=== PATIENT | female | born 1960 | race Caucasian/White ===

== ENCOUNTER 2019-06-16 19:16 | Inpatient (IN) ==
[2019-06-16] MEDS ORDERED: SODIUM CHLORIDE 0.9% 1000ML 2,000 ML IV ONE (19:43)
[2019-06-16] MEDS ORDERED: MoRPHine SULFATE 10 MG/ML CARP/VIAL IV STA (19:43)
[2019-06-16] MEDS ORDERED: ONDANSETRON INJ 2 MG/ML 2 ML VIAL IV STA (19:44)
[2019-06-16] MEDS ORDERED: MoRPHine SULFATE 2 MG/ML CARP ONE (20:02)
[2019-06-16] MEDS ORDERED: MoRPHine SULFATE 4 MG/ML 1 ML CARP\\VIAL ONE (20:02)
[2019-06-16 20:05] LABS: Basophils # (auto) 0.03 K/uL (0-0.2); Basophils % (auto) 0.2 %; Eosinophils # (auto) 0.06 K/uL (0-0.5); Eosinophils % (auto) 0.4 %; Hematocrit (blood only) 46.9 % (37-47); Immature Granulocytes # (auto) 0.03 K/uL (0.00-0.02); Immature Granulocytes % (auto) 0.2 %; Lymphocytes % (auto) 17.1 %; Mean Corpuscular Hemoglobin 31.7 pg (25-34); Mean Corpuscular Hgb Conc 34.1 g/dL (32-36); Mean Corpuscular Volume 92.9 fL (80-100); Mean Platelet Volume 10.5 fL (7.4-10.4); Monocytes # (auto) 0.74 K/uL (0.11-0.59); Monocytes % (auto) 5.1 %; Neutrophils # (auto) 11.26 K/uL (1.4-6.5); Platelet Count 271 K/uL (130-400); RDW Coefficient of Variation 14.2 % (11.5-14.5); RDW Standard Deviation 47.8 fL (36.4-46.3); Red Blood Count 5.05 M/uL (4.2-5.4); White Blood Count 14.62 K/uL (4.8-10.8)
[2019-06-16 20:20] LABS: iSTAT Creatinine 0.7 mg/dl (0.6-1.3); iSTAT Ionized Calcium 1.38 mmol/l (1.12-1.32); iSTAT Potassium 4.3 mEq/L (3.3-5.0)
[2019-06-16 20:20] LABS: Albumin Level 4.2 gm/dl (3.4-5.0); BUN Creatinine Ratio 14.6 (10-20); Calcium 11.3 mg/dl (8.5-10.1); Creatinine Clr Calc Pharmacy 74.8 ml/min; Est GFR (African American) 85.1; Est GFR (Non-African American) 73.4; Potassium 4.2 mmol/L (3.5-5.1)
[2019-06-16] MEDS ORDERED: IOVERSOL 100ml IV PRN (20:20)
[2019-06-16 20:23] LABS: Albumin Globulin Ratio 1.1 (0.9-2); Bilirubin,Total 0.3 mg/dl (0.2-1); Globulin 3.7 gm/dl (2.5-4.0); Total Protein 7.9 gm/dl (6.4-8.2)
--- NOTE | 2019-06-16 20:41 | CT Scan Report ---
CT abd pelvis IV con only CLINICAL HISTORY: Diffuse abdominal pain. History of multiple prior abdominal surgeries COMPARISON STUDY: None. TECHNIQUE: Patient was scanned in a dynamic helical fashion during intravenous administration of 93 c c of Optiray 320. A dose lowering technique was utilized adhering to the principles of ALARA. CT DOSE: 548.88 mGy.cm FINDINGS: Lower chest: There is subsegmental atelectatic change present within the right lower lobe. Lingular a telectatic changes are also evident. There are no significant pleural effusions. Liver: The contrast-enhanced liver is normal in size, contour, and attenuation. There is no intrahepa tic biliary ductal dilatation. The hepatic veins and portal veins are patent. Gallbladder: Unremarkable. Spleen: Normal in size and attenuation. Pancreas: Unremarkable. Adrenal glands: Unremarkable. Kidneys: There is no hydronephrosis. There are bilateral renal cysts. Bowel: There are dilated mid and proximal small bowel loops.. The distal small bowel is of normal omar iber. The findings are indicative of a small bowel obstruction. There is no pneumatosis. There is no portal venous gas. There is no pathologic interloop fluid. There is colonic diverticulosis. There is no evidence of acute diverticulitis. There is a fluid-filled cecum. There are no findings to indicate acute appendicitis. There are postsurgical changes of a lower sigmoid/rectal anastomosis. Peritoneum: There is no intraperitoneal free air or abdominal ascites. Vasculature: The abdominal aorta is normal in course and caliber. Adenopathy: None. Pelvic viscera: The uterus appears surgically absent Skeletal structures: No destructive osseous lesions are seen. IMPRESSION: 1. Mid small bowel obstruction 2. No evidence of free intraperitoneal air ACT 112: Negative or not required by law. Electronically signed by: Alfred Hodges M.D. 06/16/2019 8:40 PM
[2019-06-16 21:39] LABS: Appearance Urine Clear (Clear); Bilirubin Urine Negative (Negative); Blood Urine Negative (Negative); Color Urine Yellow; Glucose Urine UA Negative (Negative); Ketones Urine Negative (Negative); Leukocyte Esterase Urine Negative (Negative); Nitrite Urine Negative (Negative); Protein Urine Negative (Negative); Specific Gravity Urine 1.045 (1.000-1.030); Urobilinogen Urine Negative (Negative); pH Urine 6.5 (4.5-7.5)
--- NOTE | 2019-06-16 21:43 | Surgery Consultation ---
Date of Consultation June 16, 2019 Assessment & Plan (1) Small bowel obstruction: Patient will be admitted to the hospital with small bowel obstruction. Have ordered an NG tube Does not appear she needs urgent surgical intervention at this time. She does require surgery it may be difficult Secondary to prior operations and potential mesh placement We will be sure her electrolytes, magnesium, phosphate are all normal and replace as needed She and her family appear to understand and agree with the plan History of Present Illness History of Present Illness Patient is a 58-year-old female admitted to the emergency room with abdominal pain and nausea no apparent vomiting CT scan she has evidence of bowel dilatation consistent with a small bowel obstruction. She has a significant surgical history with perforated diverticulitis in 2009 requiring colostomy, at some point she had a reversal parent hernia surgery likely mesh placement. 2 years ago she had a laparoscopy with lysis of adhesions and possible mesh placement at that time. Allergies Allergy/AdvReac Type Severity Reaction Status Date / Time No Known Allergies Allergy Verified 06/16/19 20:13 Home Medications Home Medications Medication Instructions Recorded Confirmed Type multivitamin 1 tab PO DAILY 06/16/19 06/16/19 History Patient History Medical History (Updated 06/16/19 @ 21:44 by Timmy Varela MD, FACS) Rupture of bowel Social History Feels Safe at Home: Yes Smoking Status: Current every day smoker Review of Systems Review of Systems: All systems reviewed & are unremarkable except as noted in HPI & below Physical Exam Physical Exam: Her abdomen is moderately distended she does have some mild bowel sounds He has minimal tenderness and no peritoneal irritation Constitutional: well developed and well nourished; no acute distress Respiratory: normal respiratory effort; no respiratory distress Cardiovascular: Rate/Rhythm: regular rate Skin: no rashes, warm and dry Neurologic: awake Psychiatric: Orientation: alert Results & Data Vital Signs (Past 12 Hours) Vital Signs Temp Pulse Resp BP Pulse Ox 06/16/19 21:00 67 20 103/54 L 95 06/16/19 20:30 70 16 123/71 94 06/16/19 20:28 73 23 119/56 L 94 06/16/19 20:00 67 22 126/67 94 06/16/19 19:53 93 06/16/19 19:43 76 25 H 138/49 L 95 06/16/19 19:28 36.4 C L 91 H 18 113/70 94 I did review her CAT scan PG Care Time/CCT Total # of Minutes Spent Total Time Spent with Patient: Total time spent is greater than 50% in coordinat ion of care (as documented) at patient's floor/unit and/or counseling patient:
[2019-06-16] MEDS ORDERED: ONDANSETRON INJ 2 MG/ML 2 ML VIAL IV PRN (23:02)
[2019-06-16] MEDS ORDERED: MoRPHine SULFATE 4 MG/ML 1 ML CARP\\VIAL IV PRN (23:02)
--- NOTE | 2019-06-16 23:25 | Emergency Department Note ---
Entered by Cristiana Mendoza acting as a scribe for Daryn Greenberg DO History of Present Illness General Chief complaint: Abdominal Pain Stated complaint: ABDOMINAL PAIN Source: patient History of Present Illness Onset (ago): hour(s) (6) Location: abdomen Pain Consistency: + constant Maximum Pain Intensity: 10 Current Pain Intensity: 10 Quality: + sharp Associated symptoms: + denies other symptoms (pain or burning with urination, vaginal bleeding or discharge ) The patient is a 58 year old female who presents to the Emergency Room with complaints of constant sharp abdominal pain beginning 6 hours ago. She reports the pain is a 10/10. She notes the pain extends into her back. The patient states she has been unable to vomit, and notes her last bowel movement was early this morning. The patient denies pain or burning with urination. She denies vaginal bleeding or discharge. The patient reports a history of a ruptured bowel. She states this pain is similar to before she had surgery for the rupture. She notes she still has her gallbladder, appendix, and ovaries. She reports a history of a partial hysterectomy. She states she is a smoker. Home Medications Home Medications Medication Instructions Recorded Confirmed Type multivitamin 1 tab PO DAILY 06/16/19 06/16/19 History Allergies Allergy/AdvReac Type Severity Reaction Status Date / Time No Known Allergies Allergy Verified 06/16/19 20:13 Past Med/Surg History Medical History Rupture of bowel Surgical History History of partial hysterectomy Family History Other No pertinent family history Social History Preferred Language: Armenian Prevocational/Rehabilitation Counselor Required: No Beliefs That Will Affect Care: None Current Living Situation: Spouse Feels Safe at Home: Yes Safety Concerns: Feels Safe At This Time Smoking Status: Current every day smoker Tobacco Type: cigarettes ; Cigarettes Per Day: 20 ; Hx Alcohol Use: Yes Alcohol type: beer and other Hx Substance Use: No Review of Systems See HPI for pertinent positives & negatives. and A total of 10 systems reviewed and were otherwise negative Physical Exam Vital Signs Vital Signs - 24 hr 06/16/19 19:28 06/16/19 19:43 06/16/19 19:53 Temperature 36.4 C L Temperature Source Oral Pulse Rate 91 H 76 Pulse Rate from SpO2 Sensor 74 Respiratory Rate 18 25 H Respiratory Effort / Characteristics Non-Labored Respiratory Depth Normal Blood Pressure 113/70 138/49 L Blood Pressure Mean 84 87 Pulse Oximetry 94 95 93 Oxygen Delivery Method Room Air Room Air Sepsis Recent Fever Within 48 Hours No Sepsis Action Taken by Nursing No Action Required 06/16/19 20:00 06/16/19 20:28 06/16/19 20:30 Temperature Temperature Source Pulse Rate 67 73 70 Pulse Rate from SpO2 Sensor 67 74 70 Respiratory Rate 22 23 16 Respiratory Effort / Characteristics Respiratory Depth Blood Pressure 126/67 119/56 L 123/71 Blood Pressure Mean 80 81 79 Pulse Oximetry 94 94 94 Oxygen Delivery Method Room Air Room Air Sepsis Recent Fever Within 48 Hours Sepsis Action Taken by Nursing 06/16/19 21:00 06/16/19 21:30 06/16/19 22:00 Temperature Temperature Source Pulse Rate 67 69 78 Pulse Rate from SpO2 Sensor 68 69 80 Respiratory Rate 20 15 20 Respiratory Effort / Characteristics Respiratory Depth Blood Pressure 103/54 L 113/68 130/91 Blood Pressure Mean 68 77 115 Pulse Oximetry 95 94 94 Oxygen Delivery Method Room Air Room Air Room Air Sepsis Recent Fever Within 48 Hours Sepsis Action Taken by Nursing GENERAL: sitting up in bed, holding abdomen, moderate distress, non-toxic EYE EXAM: normal conjunctiva OROPHARYNX: no exudate, no erythema, lips, buccal mucosa, and tongue normal and mucous membranes are moist NECK: supple, no nuchal rigidity, no adenopathy, non-tender LUNGS: Clear to auscultation. Normal chest wall mechanics HEART: no murmurs, S1 normal and S2 normal ABDOMEN: abdomen soft, normo-active bowel sounds, no masses, no rebound or guarding. Diffuse tenderness to palpation. Old midline incision in lower abdomen. BACK: Back is symmetrical on inspection and there is no deformity, no midline tenderness, no CVA tenderness. SKIN: no rashes and no bruising UPPER EXTREMITIES: upper extremities are grossly normal. LOWER EXTREMITIES: No pitting edema. NEURO EXAM: Normal sensorium, cranial nerves II-XII grossly intact, normal speech, no gross weakness of arms, no gross weakness of legs. Course Course ED COURSE: Vital signs were reviewed and showed to be normal. The patients medical record was reviewed The above diagnostic studies were performed and reviewed. ED treatments and interventions as stated above. 1934: The patient was evaluated in room B10. A complete history and physical examination was performed. 2109: I spoke with Dr. Varela - General Surgery who agrees to consult on the patient. 2114: Upon reevaluation, the patient is resting more comfortably. I discussed my findings with the patient and she understands and agrees with the treatment plan. Based on the patients age, coexisting illnesses, exam and lab findings the decision to treat as an inpatient was made. I reviewed the patient's case with [facility]. [facility] Hospitalist who will evaluate the patient for further management. The patient remained stable while under my care. The patient will be evaluated for further management. Administered Medications Discontinued Medications Sodium Chloride (Nss 1000ml) 2,000 mls @ 999 mls/hr IV .Q2H1M ONE Stop: 06/16/19 21:43 Last Infusion: 06/16/19 21:58 Dose: 0 mls/hr Documented by: [id number] Admin: 06/16/19 19:57 Dose: 999 mls/hr Documented by: [id number] Ioversol (Optiray 320 100ml) 94 ml IV ONCE PRN PRN Reason: Interaction Checking Stop: 06/20/19 20:19 Last Admin: 06/16/19 20:20 Dose: 94 ml Documented by: [id number] Morphine Sulfate (Morphine Sulfate) 6 mg IV NOW STA Stop: 06/16/19 19:44 Last Admin: 06/16/19 20:05 Dose: Not Given Documented by: [id number] Morphine Sulfate (Morphine Sulfate) Confirm Administered Dose 2 mg .ROUTE .STK- MED ONE Stop: 06/16/19 20:03 Last Admin: 06/16/19 20:04 Dose: 2 mg Documented by: [id number] Morphine Sulfate (Morphine Sulfate) Confirm Administered Dose 4 mg .ROUTE .STK- MED ONE Stop: 06/16/19 20:03 Last Admin: 06/16/19 20:04 Dose: 4 mg Documented by: [id number] Ondansetron HCl (Zofran) 4 mg IV NOW STA Stop: 06/16/19 19:45 Last Admin: 06/16/19 20:03 Dose: 4 mg Documented by: [id number] Medical Decision Making Differential Diagnosis Differential diagnoses includes but is not limited to gastritis, peptic ulcer disease, GERD, gallbladder disease, pancreatitis, small bowel obstruction, acute coronary syndrome, pericarditis, ischemic bowel, irritable bowel disease, ir ritable bowel syndrome, appendicitis, diverticulitis, malignancy, hernia, urinary tract infection, torsion, /ectopic , perforation, trauma, infectious. Medical Records Attestation: I reviewed the patient's medical records. Home Medications Current Medication List: was personally reviewed by me Laboratory Data Attestation: I reviewed the patient's lab results. Result diagrams: 06/16/19 19:54 06/16/19 19:54 Lab Results 06/16/19 06/16/19 06/16/19 Range/Units 19:54 19:54 20:01 WBC 14.62 H (4.8-10.8) K/uL RBC 5.05 (4.2-5.4) M/uL Hgb 16.0 (12.0-16.0) g/dL POC Hgb 16.0 (12.0-16.0) g/dl Hct 46.9 (37-47) % POC Hct 47 (37-47) % MCV 92.9 (80-100) fL MCH 31.7 (25-34) pg MCHC 34.1 (32-36) g/dL RDW Std Deviation 47.8 H (36.4-46.3) fL RDW Coeff of Trace 14.2 (11.5-14.5) % Plt Count 271 (130-400) K/uL MPV 10.5 H (7.4-10.4) fL Immature Gran % (Auto) 0.2 % Neut % (Auto) 77.0 % Lymph % (Auto) 17.1 % [place] % (Auto) 5.1 % Eos % (Auto) 0.4 % Baso % (Auto) 0.2 % Immature Gran # (Auto) 0.03 H (0.00-0.02) K/uL Neut # (Auto) 11.26 H (1.4-6.5) K/uL Lymph # (Auto) 2.50 (1.2-3.4) K/uL [place] # (Auto) 0.74 H (0.11-0.59) K/uL Eos # (Auto) 0.06 (0-0.5) K/uL Baso # (Auto) 0.03 (0-0.2) K/uL POC Sodium 137 (135-144) mEq/L Sodium 138 (136-145) mmol/L POC Potassium 4.3 (3.3-5.0) mEq/L Potassium 4.2 (3.5-5.1) mmol/L POC Chloride 103 (101-112) mEq/L Chloride 105 (98-107) mmol/L Carbon Dioxide 26 (21-32) mmol/L POC Total CO2 25 (24-31) mEq/l Anion Gap 8.0 (3-11) POC Anion Gap 14.0 L (16-25) mmol/L POC BUN 12 (7-18) mg/dl BUN 13 (7-18) mg/dl Creatinine 0.88 (0.6-1.2) mg/dl POC Creatinine 0.7 (0.6-1.3) mg/dl Est Cr Clr Drug Dosing 74.8 ml/min Est GFR ( Amer) 85.1 Est GFR (Non-Af Amer) 73.4 BUN/Creatinine Ratio 14.6 (10-20) Glucose 114 H (70-99) mg/dl POC Glucose (other) 114 H (70-99) mg/dl Calcium 11.3 H (8.5-10.1) mg/dl POC Ioniz Calcium Eli 1.38 H (1.12-1.32) mmol/l Total Bilirubin 0.3 (0.2-1) mg/dl AST 10 L (15-37) U/L ALT 25 (12-78) U/L Alkaline Phosphatase 77 (45-117) U/L Total Protein 7.9 (6.4-8.2) gm/dl Albumin 4.2 (3.4-5.0) gm/dl Globulin 3.7 (2.5-4.0) gm/dl Albumin/Globulin Ratio 1.1 (0.9-2) Lipase 231 (73-393) U/L Urine Color Urine Appearance (Clear) Urine pH (4.5-7.5) Ur Specific [place] (1.000-1.030) Urine Protein (Negative) Urine Glucose (UA) (Negative) Urine Ketones (Negative) Urine Blood (Negative) Urine Nitrite (Negative) Urine Bilirubin (Negative) Urine Urobilinogen (Negative) Ur Leukocyte Esterase (Negative) POC Ur Test (NEG) 06/16/19 06/16/19 Range/Units 21:12 21:12 WBC (4.8-10.8) K/uL RBC (4.2-5.4) M/uL Hgb (12.0-16.0) g/dL POC Hgb (12.0-16.0) g/dl Hct (37-47) % POC Hct (37-47) % MCV (80-100) fL MCH (25-34) pg MCHC (32-36) g/dL RDW Std Deviation (36.4-46.3) fL RDW Coeff of Trace (11.5-14.5) % Plt Count (130-400) K/uL MPV (7.4-10.4) fL Immature Gran % (Auto) % Neut % (Auto) % Lymph % (Auto) % [place] % (Auto) % Eos % (Auto) % Baso % (Auto) % Immature Gran # (Auto) (0.00-0.02) K/uL Neut # (Auto) (1.4-6.5) K/uL Lymph # (Auto) (1.2-3.4) K/uL [place] # (Auto) (0.11-0.59) K/uL Eos # (Auto) (0-0.5) K/uL Baso # (Auto) (0-0.2) K/uL POC Sodium (135-144) mEq/L Sodium (136-145) mmol/L POC Potassium (3.3-5.0) mEq/L Potassium (3.5-5.1) mmol/L POC Chloride (101-112) mEq/L Chloride (98-107) mmol/L Carbon Dioxide (21-32) mmol/L POC Total CO2 (24-31) mEq/l Anion Gap (3-11) POC Anion Gap (16-25) mmol/L POC BUN (7-18) mg/dl BUN (7-18) mg/dl Creatinine (0.6-1.2) mg/dl POC Creatinine (0.6-1.3) mg/dl Est Cr Clr Drug Dosing ml/min Est GFR ( Amer) Est GFR (Non-Af Amer) BUN/Creatinine Ratio (10-20) Glucose (70-99) mg/dl POC Glucose (other) (70-99) mg/dl Calcium (8.5-10.1) mg/dl POC Ioniz Calcium Eli (1.12-1.32) mmol/l Total Bilirubin (0.2-1) mg/dl AST (15-37) U/L ALT (12-78) U/L Alkaline Phosphatase (45-117) U/L Total Protein (6.4-8.2) gm/dl Albumin (3.4-5.0) gm/dl Globulin (2.5-4.0) gm/dl Albumin/Globulin Ratio (0.9-2) Lipase (73-393) U/L Urine Color Yellow Urine Appearance Clear (Clear) Urine pH 6.5 (4.5-7.5) Ur Specific [place] 1.045 H (1.000-1.030) Urine Protein Negative (Negative) Urine Glucose (UA) Negative (Negative) Urine Ketones Negative (Negative) Urine Blood Negative (Negative) Urine Nitrite Negative (Negative) Urine Bilirubin Negative (Negative) Urine Urobilinogen Negative (Negative) Ur Leukocyte Esterase Negative (Negative) POC Ur Test NEG (NEG) Imaging Data Radiologist's Impression: Radiology results as stated below per my review and the radiologist's interpretation: CT abd pelvis IV con only CLINICAL HISTORY: Diffuse abdominal pain. History of multiple prior abdominal surgeries COMPARISON STUDY: None. TECHNIQUE: Patient was scanned in a dynamic helical fashion during intravenous administration of 93 cc of Optiray 320. A dose lowering technique was utilized adhering to the principles of ALARA. CT DOSE: 548.88 mGy.cm FINDINGS: Lower chest: There is subsegmental atelectatic change present within the right lower lobe. Lingular atelectatic changes are also evident. There are no significant pleural effusions. Liver: The contrast-enhanced liver is normal in size, contour, and attenuation. There is no intrahepatic biliary ductal dilatation. The hepatic veins and portal veins are patent. Gallbladder: Unremarkable. Spleen: Normal in size and attenuation. Pancreas: Unremarkable. Adrenal glands: Unremarkable. Kidneys: There is no hydronephrosis. There are bilateral renal cysts. Bowel: There are dilated mid and proximal small bowel loops.. The distal small bowel is of normal caliber. The findings are indicative of a small bowel obstruction. There is no pneumatosis. There is no portal venous gas. There is no pathologic interloop fluid. There is colonic diverticulosis. There is no evidence of acute diverticulitis. There is a fluid-filled cecum. There are no findings to indicate acute appendicitis. There are postsurgical changes of a lower sigmoid/rectal anastomosis. Peritoneum: There is no intraperitoneal free air or abdominal ascites. Vasculature: The abdominal aorta is normal in course and caliber. Adenopathy: None. Pelvic viscera: The uterus appears surgically absent Skeletal structures: No destructive osseous lesions are seen. IMPRESSION: 1. Mid small bowel obstruction 2. No evidence of free intraperitoneal air ACT 112: Negative or not required by law. Electronically signed by: Alfred Hodges M.D. 06/16/2019 8:40 PM Blood Pressure Blood Pressure Findings: Normal blood pressure MDM Narrative Patient is a 58-year-old female who presents the ER for severe abdominal pain. She has a history of a previous obstruction. She notes this feels similar. IV was established blood work was obtained showed a leukocytosis of 14,000. No si gnificant anemia. BMP was unremarkable. Calcium slightly elevated at 11. LFTs bilirubin and lipase was unremarkable. UA was negative. negative. CT abdomen pelvis shows small bowel obstruction. Patient had no vomiting. Abdominal lab was pretty benign. She given IV fluids and IV narcotics. Patient rested comfortably in the ER. She discussed with general surgery and the hospitalist. Updated bedside admitted to the hospital for small bowel obstruction. Impression & Plan Small bowel obstruction, Abdominal pain Discharge Plan Visit Data *Final* Discharge Date/Time: 06/16/19 22:54 Chief Complaint: Abdominal Pain Stated Complaint: ABDOMINAL PAIN ED Provider: Daryn Greenberg Discharge Problem: Small bowel obstruction, Abdominal pain Patient Disposition: Admitted As Inpatient Discharge Instructions Interventions: ED Discharge Assessment Last Done: 06/16/19 22:54 Discharge Problem: Abdominal pain Qualifiers: Abdominal location: unspecified location Qualified Code(s): R10.9 - Unspecified abdominal pain The scribe's documentation has been prepared under my direction and personally reviewed by me in its entirety. I confirm that the note above accurately reflects all work, treatment, procedures, and medical decision making performed by me.
[2019-06-16] MEDS: D5W AND NSS 1,000 ML IV SCH (23:32)
--- NOTE | 2019-06-17 01:08 | History and Physical Report ---
DATE OF ADMISSION: 06/16/2019 CHIEF COMPLAINT: Abdominal pain. HISTORY OF PRESENT ILLNESS: A 58-year-old female with past medical history significant for ruptured diverticulitis status post colostomy, reversal colostomy in 2009 and then had a hernia surgery, complication from her previous surgery. Then in 2017,she had laparoscopic lysis of adhesions and possible mesh placement at [facility].Lives with her , comes because of abdominal pain started today afternoon, severe in nature, also has some nausea. Last bowel movement was in the morning when she had small bowel movement. Yesterday she felt chills. Denies any fevers. Currently given pain medications and NG tube and symptoms improved, slight greenish yellowish fluid draining in the NG tube. Has some mild headache, no blurred visions, no earache, no runny nose, no sore throat. Otherwise, her appetite is okay. No difficulty swallowing, no chest pain or shortness of breath. No diarrhea or constipation. Currently resting comfortably and hemodynamically stable. ALLERGIES: No known drug allergies. PAST MEDICAL HISTORY: As mentioned above. PAST SURGICAL HISTORY: Surgery for ruptured diverticulitis with colostomy and reversal colostomy, hernia surgery and also laparoscopic adhesiolysis, hysterectomy. MEDICATIONS: Multivitamins. FAMILY HISTORY: Father had prostate cancer and COPD. Mother had colon cancer. SOCIAL HISTORY: No smoking. Alcohol occasional. Lives with her . REVIEW OF SYMPTOMS: As per HPI. Rest of review of symptoms negative. PHYSICAL EXAMINATION: GENERAL: The patient is of moderate build, not in acute distress. VITAL SIGNS: Temperature 36.4, pulse 67, respiratory rate 20, blood pressure 130/91, oxygen 94% room air. HEENT: No pallor, no icterus. Pupils equal, round, reactive. NECK: No JVD, no neck masses, no carotid bruits. CARDIOVASCULAR: S1, S2 heard, regular rate and rhythm, no murmur, no gallop. RESPIRATORY SYSTEM: Normal AP diameter. No accessory muscle use. No wheezing, no crackles. ABDOMEN: Soft, bowel sounds absent, mild distention, no guarding, no rigidity, no tenderness. CENTRAL NERVOUS SYSTEM: Cranial nerves II-XII grossly intact. Nonfocal. EXTREMITIES: Trace pedal edema, no erythema. LABORATORY DATA: WBC 14.6, hemoglobin 16, hematocrit 46.9, platelets 271. Sodium 138, potassium 4.2, chloride 105, CO2 26, BUN 13, creatinine 0.8, serum glucose 114, calcium 11.3, total bilirubin 0.3, AST 10, ALT 25, alkaline phosphatase 77, lipase 231. UA negative. CT of abdomen and pelvis shows mild small-bowel obstruction, no evidence of free or peritoneal air. ASSESSMENT AND PLAN: This is a 58-year-old female who presents with abdominal pain, found to have small-bowel obstruction. 1. Abdominal pain, small-bowel obstruction, history of prior abdominal surgeries as mentioned in H&P. Surgery consulted and evaluated in the ER. Currently, patient is on NG tube, will continue NG tube, IV fluids, IV antiemetics p.r.n., IV pain medication p.r.n. and follow KUB in a.m., further recommendation as per Surgery. 2. Hypercalcemia: Could be from dehydration. We will follow repeat labs in a.m. and will check vitamin D levels. The patient is on multivitamins. 3. Deep venous thrombosis prophylaxis, sequential compression devices. DISPOSITION: Admit to medical floor. Expect discharge home and follow with family doctor. Level 1 full code. MTDD
[2019-06-17 05:45] LABS: Basophils # (auto) 0.03 K/uL (0-0.2); Basophils % (auto) 0.3 %; Eosinophils # (auto) 0.12 K/uL (0-0.5); Eosinophils % (auto) 1.3 %; Hematocrit (blood only) 42.1 % (37-47); Hemoglobin 13.9 g/dL (12.0-16.0); Immature Granulocytes # (auto) 0.02 K/uL (0.00-0.02); Immature Granulocytes % (auto) 0.2 %; Lymphocytes % (auto) 31.2 %; Mean Corpuscular Hemoglobin 31.2 pg (25-34); Mean Corpuscular Volume 94.4 fL (80-100); Mean Platelet Volume 10.2 fL (7.4-10.4); Monocytes # (auto) 0.84 K/uL (0.11-0.59); Neutrophils # (auto) 5.38 K/uL (1.4-6.5); Platelet Count 225 K/uL (130-400); RDW Coefficient of Variation 14.2 % (11.5-14.5); Red Blood Count 4.46 M/uL (4.2-5.4); White Blood Count 9.29 K/uL (4.8-10.8)
[2019-06-17 06:06] LABS: Albumin Globulin Ratio 1.1 (0.9-2); Albumin Level 3.2 gm/dl (3.4-5.0); BUN Creatinine Ratio 11.7 (10-20); Bilirubin,Total 0.3 mg/dl (0.2-1); Calcium 9.3 mg/dl (8.5-10.1); Creatinine Clr Calc Pharmacy 90.1 ml/min; Est GFR (African American) 106.7; Est GFR (Non-African American) 92.1; Magnesium 1.9 mg/dl (1.8-2.4); Phosphorus 2.9 mg/dl (2.5-4.9); Potassium 3.9 mmol/L (3.5-5.1); Total Protein 6.2 gm/dl (6.4-8.2)
[2019-06-17] MEDS: D5W AND NSS 1,000 ML IV SCH ×2 (06:14→13:09)
--- NOTE | 2019-06-17 06:29 | Surgery Progress Note ---
Date of Service June 17, 2019 Assessment & Plan (1) Small bowel obstruction: Patient has shown some improvement overnight Her NG output is clear We should continue with NG decompression, check her electrolytes occluding phos/mg I think she can have ice chips popsicles-we will monitor the amount Should ambulate in the hallway We may consider contrast study via the G-tube/CT scan tomorrow depending on her progress Subjective Patient is awake and alert her vital signs are stable She feels much better after placement of the NG tube with minimal pain [place] she did have over 500 cc out from her NG tube Her urine output is adequate Physical Exam Physical Exam: Patients abdomen is much less distended and softer She does have some bowel sounds they are slightly high-pitched She has no significant tenderness Constitutional: no acute distress Respiratory: normal respiratory effort; no respiratory distress Cardiovascular: Rate/Rhythm: regular rate Skin: no rashes, warm and dry Neurologic: awake Psychiatric: Orientation: alert Results & Data Vital Signs (Past 12 Hours) Vital Signs Temp Pulse Pulse Resp BP BP Pulse Ox 06/16/19 23:02 36.5 C 69 18 117/72 94 06/16/19 22:30 72 15 129/62 94 06/16/19 22:00 78 20 130/91 94 06/16/19 21:30 69 15 113/68 94 06/16/19 21:00 67 20 103/54 L 95 06/16/19 20:30 70 16 123/71 94 06/16/19 20:28 73 23 119/56 L 94 06/16/19 20:00 67 22 126/67 94 06/16/19 19:53 93 06/16/19 19:43 76 25 H 138/49 L 95 06/16/19 19:28 36.4 C L 91 H 18 113/70 94 PG Care Time/CCT Total # of Minutes Spent Total Time Spent with Patient: Total time spent is greater than 50% in coordination of care (as documented) at patient's floor/unit and/or counseling patient:
--- NOTE | 2019-06-17 08:08 | XRay Report ---
KUB CLINICAL HISTORY: Small bowel obstruction. FINDINGS: 2 AP supine abdominal radiographs are correlated with abdominal CT dated 06/16/2019. An ente uri tube projects below the diaphragm over the proximal stomach. There are mildly distended and gas-f illed small bowel loops which measure up to 3.5 cm in diameter. This is consistent with the known his tory of small bowel obstruction. No evidence of intraperitoneal free air is seen on these supine imag es. There are no abnormal abdominal calcifications. Suture material and phleboliths are noted in the pelvis. The skeletal structures are osteopenic. Mild lumbosacral spondylosis is observed. Atelectasis is noted at the lung bases. IMPRESSION: 1. An enteric tube projects below the diaphragm over the proximal stomach. 2. Mildly distended and gas-filled loops of small bowel remain consistent with obstruction. Electronically signed by: Thuan Carrero M.D. 06/17/2019 8:07 AM
--- NOTE | 2019-06-17 13:22 | Hospitalist Progress Note ---
Date of Service June 17, 2019 Assessment & Plan (1) Small bowel obstruction: -CT abdomen: 06/16/2019: Mid small bowel obstruction -KUB 06/17/2019: Mildly distended and gas-filled loops of small bowel remain consistent with obstruction -06/17/2019: Patient reported 1 episode of wet flatus yesterday but otherwise she reports her last bowel movement was on Monday06/14/2019. Patient remains having NG tube as per general surgery service -monitor electrolytes while on NG tube -give IV fluids with dextrose Abdominal pain secondary to small bowel obstruction -pain appears controlled as of -continue prn pain pain medications and prn anti-emetics Hypercalcemia Vitamin D deficiency -serum calcium levels downtrended with IV fluids -trend calcium levels -the 25-OH vitamin D levels are low as 16.3 ng/ml (reference range of 30 to 100) -check PTH levels Deep venous thrombosis prophylaxis, sequential compression devices; ambulation is encouraged Ambulation as tolerated Subjective Patient reported 1 episode of wet flatus yesterday but otherwise she reports her last bowel movement was on Monday06/14/2019. Patient remains having NG tube. no vomiting. no chest pain. no shortness of breath. no abdominal pain. she is encouraged to ambulate when NG tube is not suctioning Review of Systems Review of Systems: All systems reviewed & are unremarkable except as noted in HPI & below Physical Exam Eyes: PERRL, conjunctivae normal, anicteric sclerae EOM intact bilaterally ENMT: external ear and nose normal, oropharynx normal Respiratory: normal respiratory effort, lungs clear to auscultation Cardiovascular: RRR, no murmur, no edema Gastrointestinal (Abdomen): normal bowel sounds, soft, nontender, no hepatosplenomegaly Musculoskeletal: Head/Neck/Chest: normocephalic and head atraumatic Neurologic: PERRL, EOMI, accommodation nl, no face palsy, no dysarthria CN's II-XI intact bilaterally Psychiatric: A+Ox3, euthymic affect Results & Data Vital Signs (Past 12 Hours) Vital Signs Temp Pulse Resp BP Pulse Ox 06/17/19 07:33 36.5 C 68 16 101/62 90
[2019-06-17] MEDS ORDERED: HYDROmorphone INJ 0.5 MG/0.5 ML SYR IV PRN (13:27)
[2019-06-17] MEDS ORDERED: ACETAMINOPHEN 1,000 MG/100 ML VIAL IV PRN (13:27)
[2019-06-17] MEDS ORDERED: KETOROLAC TROMETHAMINE 15 MG/ML VIAL IV PRN (13:27)
[2019-06-17 14:19] LABS: Albumin Level 3.6 gm/dl (3.4-5.0); BUN Creatinine Ratio 10.4 (10-20); Calcium 9.4 mg/dl (8.5-10.1); Creatinine Clr Calc Pharmacy 84.3 ml/min; Est GFR (African American) 98.5; Potassium 4.1 mmol/L (3.5-5.1)
[2019-06-17 14:29] LABS: Albumin Globulin Ratio 1.1 (0.9-2); Bilirubin,Total 0.4 mg/dl (0.2-1); Globulin 3.2 gm/dl (2.5-4.0); Thyroid Stimulating Hormone 46.8 uIu/ml (0.300-4.500); Total Protein 6.8 gm/dl (6.4-8.2)
[2019-06-17 14:42] LABS: T4 Free Thyroxine 0.47 ng/dl (0.8-1.6)
[2019-06-17] MEDS: D5W AND 1/2NSS 1,000 ML IV SCH (14:43)
[2019-06-18] MEDS: D5W AND 1/2NSS 1,000 ML IV SCH ×2 (05:54→22:56)
--- NOTE | 2019-06-18 07:17 | Surgery Progress Note ---
Date of Service June 18, 2019 Assessment & Plan (1) Small bowel obstruction: cont NG will check CT with contrast via NG assess transit of contrast cont ambulation, check labs Subjective passed some flatus NG 170 last shift- nonbilious good UO Physical Exam Physical Exam: abd- mild distention, some normal bowel sounds nontender Constitutional: well developed and well nourished; no acute distress Respiratory: normal respiratory effort; no respiratory distress Cardiovascular: Rate/Rhythm: regular rate Skin: no rashes, warm and dry Neurologic: awake Psychiatric: Orientation: alert Results & Data Vital Signs (Past 12 Hours) Vital Signs Temp Pulse Resp BP Pulse Ox 06/18/19 07:01 37.1 C 77 16 118/68 92 06/17/19 23:19 37.3 C 98 H 16 128/81 93 PG Care Time/CCT Total # of Minutes Spent Total Time Spent with Patient: Total time spent is greater than 50% in coordination of care (as documented) at patient's floor/unit and/or counseling patient:
[2019-06-18] MEDS ORDERED: LEVOTHYROXINE SODIUM 50 MCG in SYRINGE 0 ML IV ONE (07:30)
[2019-06-18 07:36] LABS: Basophils # (auto) 0.02 K/uL (0-0.2); Basophils % (auto) 0.2 %; Eosinophils # (auto) 0.14 K/uL (0-0.5); Eosinophils % (auto) 1.3 %; Hematocrit (blood only) 45.2 % (37-47); Hemoglobin 14.9 g/dL (12.0-16.0); Immature Granulocytes # (auto) 0.02 K/uL (0.00-0.02); Immature Granulocytes % (auto) 0.2 %; Lymphocytes % (auto) 21.3 %; Mean Corpuscular Hemoglobin 31.2 pg (25-34); Mean Corpuscular Volume 94.6 fL (80-100); Mean Platelet Volume 10.3 fL (7.4-10.4); Monocytes # (auto) 1.13 K/uL (0.11-0.59); Monocytes % (auto) 10.5 %; Neutrophils # (auto) 7.18 K/uL (1.4-6.5); Neutrophils % (auto) 66.5 %; Platelet Count 220 K/uL (130-400); RDW Coefficient of Variation 14.2 % (11.5-14.5); RDW Standard Deviation 49.1 fL (36.4-46.3); Red Blood Count 4.78 M/uL (4.2-5.4); White Blood Count 10.79 K/uL (4.8-10.8)
[2019-06-18 08:06] LABS: Albumin Level 3.6 gm/dl (3.4-5.0); BUN Creatinine Ratio 7.7 (10-20); Calcium 9.7 mg/dl (8.5-10.1); Creatinine Clr Calc Pharmacy 84.3 ml/min; Est GFR (African American) 98.5; Magnesium 2.1 mg/dl (1.8-2.4)
[2019-06-18 08:09] LABS: Albumin Globulin Ratio 1.1 (0.9-2); Bilirubin,Total 0.5 mg/dl (0.2-1); Globulin 3.3 gm/dl (2.5-4.0); Phosphorus 2.6 mg/dl (2.5-4.9); Total Protein 6.9 gm/dl (6.4-8.2)
--- NOTE | 2019-06-18 08:25 | Hospitalist Progress Note ---
Date of Service June 18, 2019 Assessment & Plan (1) Small bowel obstruction: risk factors for small bowel obstruction includes previous abdominal surgeries years ago, untreated hyperparathyroidism with hypercalcemia, and newly diagnosed hypothyroidism -CT abdomen: 06/16/2019: Mid small bowel obstruction -KUB 06/17/2019: Mildly distended and gas-filled loops of small bowel remain consistent with obstruction -06/17/2019: Patient reported 1 episode of wet flatus yesterday but otherwise she reports her last bowel movement was on Monday06/14/2019. Patient remains having NG tube as per general surgery service -monitor electrolytes while on NG tube 06/18/2019: patient reports she is passing flatus, no bowel movements yet -continue with IV fluids with dextrose, continue NG tube Abdominal pain secondary to small bowel obstruction -pain appears controlled as of 06/17/2019, and no pain on 06/18/2019 -continue prn pain pain medications and prn anti-emetics HYPERPARATHYROIDISM as cause of HYPERCALCEMIA HYPOTHYROIDISM Vitamin D deficiency Hypothyroidism -patient reports of parathyroid imaging years ago -elevated serum calcium of 11.3 on admission -serum calcium levels downtrended with IV fluids to around 9 -the 25-OH vitamin D levels are low as 16.3 ng/ml (reference range of 30 to 100) -elevated PTH of 82 -elevated TSH of 46 with low T4. labs currently suggest HYPOTHYROIDISM. gave Levothyroxine 50 mcg IV starting AM of 06/18/2019 and ordered thyroid ultrasound -Hospitalist discussed case with [facility] dentist attendant Dr. Rodriguez on 06/18/2019 who notes that in 2010 patient had assessment for hyperparathyroidism in 2010 when PTH was 90 and calcium of 11 and there were nodules in right thyroid nodes and then lost to follow up -Dr. Rodriguez suggest parathyroid hormone-related protein testing to rule out malignancy related causes of elevated parathyroid although she thinks that malignancy is unlikely, given that patient known in the distant past to have elevated PTH and calcium levels. parathyroid hormone-related protein to be drawn on 06/18/2019 in hospital and this is a reference lab send out -Dr. Rodriguez suggests correcting vitamin D levels with 50,000 units twice a week for 8 weeks to rule out vitamin D deficiency as cause of elevated PTH. since patient currently has NG tube, hospitalist tentatively ordered vitamin D once every Monday and every Monday for now -in regards to the hypothyroidism, Dr. Rodriguez requests checking cortisol level to rule out adrenal issues, and that if AM cortisol levels are in double digit ranges then IV Levothyroxine should be given as 100 mcg IV daily and that when patient ready for oral Levothyroxine she should be on 125 mcg PO daily Deep venous thrombosis prophylaxis, sequential compression devices; ambulation is encouraged Ambulation as tolerated Subjective Patient seen and examined. currently remains on NG tube. Patient reports passing gas but no bowel movements. no vomiting. no abdominal pain. no neck pain. no headache. We discussed endocrine history and tentative hospital plans Review of Systems Review of Systems: All systems reviewed & are unremarkable except as noted in HPI & below Physical Exam Eyes: PERRL, conjunctivae normal, anicteric sclerae EOM intact bilaterally ENMT: external ear and nose normal, oropharynx normal Neck: normal visual inspection and trachea midline Respiratory: normal respiratory effort, lungs clear to auscultation Cardiovascular: RRR, no murmur, no edema Gastrointestinal (Abdomen): normal bowel sounds, soft, nontender, no hepatosplenomegaly Musculoskeletal: Head/Neck/Chest: normocephalic and head atraumatic Neurologic: PERRL, EOMI, accommodation nl, no face palsy, no dysarthria CN's II-XI intact bilaterally Psychiatric: A+Ox3, euthymic affect Results & Data Vital Signs (Past 12 Hours) Vital Signs Temp Pulse Resp BP Pulse Ox 06/18/19 07:31 36.6 C 88 18 129/71 94 06/18/19 07:01 37.1 C 77 16 118/68 92 06/17/19 23:19 37.3 C 98 H 16 128/81 93
[2019-06-18] MEDS: ERGOCALCIFEROL 50,000 UNITS CAP PO SCH (09:15)
[2019-06-18] MEDS ORDERED: IOVERSOL 100ml IV PRN (09:24)
--- NOTE | 2019-06-18 09:44 | CT Scan Report ---
CT abd pelvis oral and IV con CLINICAL HISTORY: Small bowel obstruction. COMPARISON STUDY: June 16, 2019 TECHNIQUE: The patient was scanned following administration of dilute oral contrast, and in a dynamic helical fashion during intravenous administration of 94 cc of Optiray 320. A dose lowering techniqu e was utilized adhering to the principles of ALARA. CT DOSE: 644.02 mGy.cm FINDINGS: Lower chest: There is an indwelling nasogastric tube. There is pulmonary emphysema. There are lower l obe airspace opacities, likely atelectatic. Liver: The contrast-enhanced liver is normal in size, contour, and attenuation. There is no intrahepa tic biliary ductal dilatation. The hepatic veins and portal veins are patent. Gallbladder: Slight increased density, likely secondary to vicarious excretion. Spleen: Normal in size and attenuation. Pancreas: Unremarkable. Adrenal glands: Unremarkable. Kidneys: There are bilateral renal cysts. No solid renal masses are visualized. Bowel: There are dilated proximal small bowel loops with normal caliber distal small bowel. The findi ngs are consistent with a partial small bowel obstruction. Contrast reached the level of the transver se colon, 2 hours following initiation of congestion. Peritoneum: There is a small amount of free pelvic fluid. This was not present on the preceding study . There is no free intraperitoneal air. Vasculature: The abdominal aorta is normal in course and caliber. Adenopathy: None. Pelvic viscera: The uterus appears surgically absent Skeletal structures: No destructive osseous lesions are seen. IMPRESSION: 1. Proximal to mid partial small bowel obstruction. Oral contrast reached the mid transverse colon 2 hours following initiation of ingestion 2. Interval development of a small amount of free pelvic fluid. ACT 112: Negative or not required by law. Electronically signed by: Alfred Hodges M.D. 06/18/2019 9:43 AM
--- NOTE | 2019-06-18 10:04 | Ultrasound Report ---
US thyroid CLINICAL HISTORY: hyperparathyroidism, hypothyroid COMPARISON STUDY: None FINDINGS: The right lobe the thyroid measures 30 x 15 x 18 mm. The left lobe measures 21 x 8 x 12 mm. Both lobes are abnormal in echotexture with coalescent nodules. IMPRESSION: 1. Multinodular thyroid gland demonstrating coarsened echotexture. Individual nodules are difficult t o measure as the nodules are coalescent. ACT 112: Negative or not required by law. Electronically signed by: Alfred Hodges M.D. 06/18/2019 10:03 AM
--- NOTE | 2019-06-18 11:32 | Surgery Progress Note ---
Date of Service June 18, 2019 Assessment & Plan (1) Small bowel obstruction: CT- contrast quickly to transverse colon- has dilated mid sm bowel which I suspect is chronic from adhesions. will d/c NG and ice/popsocles only today if she recurs - will likely need operation, possible resection will be difficult with prior surgery and mesh Results & Data Vital Signs (Past 12 Hours) Vital Signs Temp Pulse Resp BP Pulse Ox 06/18/19 07:31 36.6 C 88 18 129/71 94 06/18/19 07:01 37.1 C 77 16 118/68 92 PG Care Time/CCT Total # of Minutes Spent Total Time Spent with Patient: Total time spent is greater than 50% in coordination of care (as documented) at patient's floor/unit and/or counseling patient:
[2019-06-19] MEDS ORDERED: SENNA 8.8 MG/5 ML UDP PO PRN (05:53)
[2019-06-19 06:06] LABS: Basophils # (auto) 0.02 K/uL (0-0.2); Basophils % (auto) 0.4 %; Eosinophils # (auto) 0.15 K/uL (0-0.5); Eosinophils % (auto) 2.8 %; Hematocrit (blood only) 40.6 % (37-47); Hemoglobin 13.3 g/dL (12.0-16.0); Immature Granulocytes # (auto) 0.01 K/uL (0.00-0.02); Immature Granulocytes % (auto) 0.2 %; Lymphocytes % (auto) 31.3 %; Mean Corpuscular Hemoglobin 30.9 pg (25-34); Mean Corpuscular Hgb Conc 32.8 g/dL (32-36); Mean Corpuscular Volume 94.2 fL (80-100); Mean Platelet Volume 10.7 fL (7.4-10.4); Monocytes # (auto) 0.67 K/uL (0.11-0.59); Monocytes % (auto) 12.3 %; Neutrophils # (auto) 2.89 K/uL (1.4-6.5); Platelet Count 189 K/uL (130-400); RDW Coefficient of Variation 13.9 % (11.5-14.5); RDW Standard Deviation 48.7 fL (36.4-46.3); Red Blood Count 4.31 M/uL (4.2-5.4); White Blood Count 5.44 K/uL (4.8-10.8)
[2019-06-19 06:34] LABS: Albumin Level 3.3 gm/dl (3.4-5.0); BUN Creatinine Ratio 8.6 (10-20); Calcium 9.5 mg/dl (8.5-10.1); Creatinine Clr Calc Pharmacy 96.7 ml/min; Est GFR (African American) 113.3; Est GFR (Non-African American) 97.8; Magnesium 2.1 mg/dl (1.8-2.4); Phosphorus 2.8 mg/dl (2.5-4.9); Potassium 3.5 mmol/L (3.5-5.1)
[2019-06-19 06:36] LABS: Albumin Globulin Ratio 1.1 (0.9-2); Bilirubin,Total 0.5 mg/dl (0.2-1); Globulin 3.1 gm/dl (2.5-4.0); Total Protein 6.4 gm/dl (6.4-8.2)
--- NOTE | 2019-06-19 06:41 | Surgery Progress Note ---
Date of Service June 19, 2019 Assessment & Plan (1) Small bowel obstruction: will try clear liquids, add Senna syrup pt likely with chronic adhesions and chronic partial obstruction/stricture assess progress, hopefully can avoid operation Subjective awake, alert ++ bm- feels ok Physical Exam Physical Exam: abd soft, normal bs Constitutional: well developed; no acute distress Respiratory: normal respiratory effort; no respiratory distress Cardiovascular: Rate/Rhythm: regular rate Skin: no rashes, warm and dry Neurologic: awake Psychiatric: Orientation: alert Results & Data Vital Signs (Past 12 Hours) Vital Signs Temp Pulse Resp BP Pulse Ox 06/18/19 23:17 36.8 C 67 15 114/66 91 PG Care Time/CCT Total # of Minutes Spent Total Time Spent with Patient: Total time spent is greater than 50% in coordination of care (as documented) at patient's floor/unit and/or counseling patient:
--- NOTE | 2019-06-19 08:07 | XRay Report ---
XR abdomen 2V w PA chest CLINICAL HISTORY: 58 years-old Female presenting with h/o sbo, assess transit of CT contrast from 06/05. TECHNIQUE: PA view of the chest and supine and upright views of the abdomen were obtained. COMPARISON: Plain radiographs of the abdomen from 06/17/[address] of the abdomen and pelvis from 06/05. FINDINGS: Atherosclerosis of the aortic arch. Cardiac silhouette normal in size. Bilateral trace pleural effusi on suspected. Minimal left basilar opacity. No pneumothorax. Mild coarsened lung markings. Residual oral contrast noted in the large bowel. Oral contrast has reached the rectum. Diverticulosis of the left colon. Nonobstructive bowel gas pattern. No gross pneumoperitoneum. Allowing for bowel gas and residual oral contrast, no calcifications to suggest nephrolithiasis. Mult iple pelvic calcifications likely phleboliths. Osseous structures normal. IMPRESSION: 1. Trace bilateral pleural effusions and left basilar atelectasis. 2. Diverticulosis coli. 3. Oral contrast has reached the rectum. 4. Nonobstructive bowel gas pattern. ACT 112: Negative or not required by law. Electronically signed by: David Araya M.D. 06/19/2019 8:05 AM
[2019-06-19] MEDS ORDERED: LEVOTHYROXINE SODIUM 50 MCG in SYRINGE 0 ML IV SCH (09:00)
[2019-06-19] MEDS: LEVOTHYROXINE SODIUM 100 MCG in SYRINGE 0 ML IV SCH (09:40)
--- NOTE | 2019-06-19 14:28 | Hospitalist Progress Note ---
Date of Service June 19, 2019 Assessment & Plan (1) Small bowel obstruction: Improving clinically. Imaging this am revealed a nonobstructive bowel gas pattern. Cont management per General surgery recs. Advancing diet to clears for today with slow progression. Minimize narcotic use. (2) Secondary hyperparathyroidism: 2/2 vitamin D deficiency. Replacing with ergocalciferol now. Repeat 25 OH,PTH, Ca as outpatient in PCP followup. PTHrp also pending to ensure no malignancy which is thought to be less likely. (3) Hypothyroidism: New diagnosis. Was given IV Synthroid while on NGT. Will transition her to PO in am. Will need follow-up with PCP and Endocrinology/ENT regarding thyroid nodule workup and continued monitoring after this treatment initiation. (4) Thyroid nodule: (5) DVT prophylaxis: Lovenox/ambulation Full Code Dispo-to home when medically stable and cleared by surgery. Tabby Pena DO [facility] Hospitalist Subjective 58 yo F with a h/o bowel rupture in 1999 from a ruptured diverticula presented with abdominal pain and found to have an SBO. She is now moving her bowels, which are watery but denies pain. She is tolerating clear liquid diet. Review of Systems Review of Systems: All systems reviewed & are unremarkable except as noted in HPI & below Physical Exam Physical Exam: CONSTITUTIONAL: WNWD, vitals as above, generally well- appearing EYES: normal conjunctivae, no scleral icterus ENT: MMM RESPIRATORY: clear to auscultation bilaterally, no crackles, rales or wheezes, normal respiratory effort CARDIOVASCULAR: regular rate and rhythm, S1 and 2 heard without murmurs, gallops or rubs, no JVD, no peripheral edema GASTROINTESTINAL: normal bowel sounds, soft, nontender, nondistended MUSCULOSKELETAL: strength 5/5 throughout, head is normocephalic and atraumatic SKIN: warm and dry NEUROLOGIC: CN 2-12 grossly intact, no sensory deficit, normal cognition, normal speech, no gross focal deficits. PSYCHIATRIC: alert cooperative and oriented to person, place and time. Results & Data Vital Signs (Past 12 Hours) Vital Signs Temp Pulse Resp BP Pulse Ox 06/19/19 07:46 36.5 C 75 18 106/69 91 Laboratory Results Short CBC 06/19/19 Range/Units 05:21 WBC 5.44 (4.8-10.8) K/uL Hgb 13.3 (12.0-16.0) g/dL Hct 40.6 (37-47) % Plt Count 189 (130-400) K/uL BMP 06/19/19 05:21 Sodium 141 Potassium 3.5 Chloride 111 H Carbon Dioxide 26 BUN 6 L Creatinine 0.68 Glucose 100 H Calcium 9.5 Liver Function 06/19/19 Range/Units 05:21 Total Bilirubin 0.5 (0.2-1) mg/dl AST 12 L (15-37) U/L ALT 14 (12-78) U/L Alkaline Phosphatase 64 (45-117) U/L Albumin 3.3 L (3.4-5.0) gm/dl Medications Administered Current Inpatient Medications Ergocalciferol (Vitamin D2) 50,000 units PO MoFr@0900 [facility] Stop: 07/18/19 09:14 Last Admin: 06/18/19 09:15 Dose: 50,000 units Documented by: Hydromorphone HCl (Dilaudid) 0.5 mg IV Q8H PRN PRN Reason: Severe Pain Stop: 07/01/19 13:26 Dextrose/Sodium Chloride (D5w And 1/2nss) 1,000 mls @ 60 mls/hr IV .[id number] [facility] Stop: 07/17/19 13:29 Last Admin: 06/18/19 22:56 Dose: 60 mls/hr Documented by: Acetaminophen (Ofirmev) 1,000 mg in 100 mls @ 400 mls/hr IV Q8H PRN PRN Reason: Pain or Fever Stop: 06/20/19 13:26 Levothyroxine Sodium 100 mcg/ (Syringe) 5 mls @ 2 mls/min IV DAILY@0900 [facility] Stop: 07/19/19 08:59 Last Admin: 06/19/19 09:40 Dose: 2 mls/min Documented by: Ioversol (Optiray 320 100ml) 94 ml IV ONCE PRN PRN Reason: Interaction Checking Stop: 06/22/19 09:23 Last Admin: 06/18/19 09:24 Dose: 94 ml Documented by: Ketorolac Tromethamine (Toradol) 15 mg IV Q6H PRN PRN Reason: Moderate Pain Stop: 06/22/19 13:26 Ondansetron HCl (Zofran) 4 mg IV Q6H PRN PRN Reason: Nausea Stop: 07/16/19 23:01 Last Admin: 06/17/19 11:35 Dose: 4 mg Documented by: Sennosides (Senokot) 8.8 mg PO BID PRN PRN Reason: Constipation Stop: 07/19/19 05:52 Last Admin: 06/19/19 10:30 Dose: 8.8 mg Documented by:
[2019-06-19] MEDS ORDERED: ACETAMINOPHEN 325 MG TAB PO PRN (15:19)
--- NOTE | 2019-06-20 06:34 | Surgery Progress Note ---
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 most likely will adv to Low fiber- ask [employer] to see for diet at home cont senna syrup possible d/c tomorrow if stable- hopefully can avoid operation which I suspect would be major Subjective kenia full liquids no pain meds taken Physical Exam Physical Exam: some distention- active bowel sounds Constitutional: well developed and well nourished; no acute distress Respiratory: normal respiratory effort; no respiratory distress Cardiovascular: Rate/Rhythm: regular rate Skin: no rashes, warm and dry Neurologic: awake Psychiatric: Orientation: alert Results & Data Vital Signs (Past 12 Hours) Vital Signs Temp Pulse Resp BP Pulse Ox 06/19/19 23:04 36.6 C 65 18 113/72 93 PG Care Time/CCT Total # of Minutes Spent Total Time Spent with Patient: Total time spent is greater than 50% in coordination of care (as documented) at patient's floor/unit and/or counseling patient:
[2019-06-20] MEDS: LEVOTHYROXINE SODIUM 100 MCG in SYRINGE 0 ML IV SCH (09:20)
[2019-06-20] MEDS ORDERED: ENOXAPARIN INJ 40 MG/0.4 ML SYR SQ ONE (11:00)
--- NOTE | 2019-06-20 17:19 | Hospitalist Progress Note ---
Date of Service June 20, 2019 Assessment & Plan (1) Small bowel obstruction: Continues to improve. Continue low fiber diet. Cont surgical recs. Likely dc to home in am. (2) Secondary hyperparathyroidism: 2/2 vitamin D deficiency. Replacing with ergocalciferol now. Repeat 25 OH,PTH, Ca as outpatient in PCP followup. PTHrp also pending to ensure no malignancy which is thought to be less likely. (3) Hypothyroidism: New diagnosis. Was given IV Synthroid while on NGT. Will transition her to PO in am. Will need follow-up with PCP and Endocrinology/ENT regarding thyroid nodule workup and continued monitoring after this treatment initiation. (4) Thyroid nodule: outpatient workup needed (5) DVT prophylaxis: Lovenox/ambulation Full Code Dispo-to home when medically stable and cleared by surgery, likely tomorrow. Tabby Pena DO [facility] Hospitalist Subjective Feeling well today. Denies abdominal pain. Passing flatus. Tolerating current diet. Continues to ambulate around the hallways without issue. Review of Systems Review of Systems: All systems reviewed & are unremarkable except as noted in HPI & below Physical Exam Physical Exam: CONSTITUTIONAL: WNWD, vitals as above, generally well- appearing EYES: normal conjunctivae, no scleral icterus ENT: MMM RESPIRATORY: clear to auscultation bilaterally, no crackles, rales or wheezes, normal respiratory effort CARDIOVASCULAR: regular rate and rhythm, S1 and 2 heard without murmurs, gallops or rubs, no JVD, no peripheral edema GASTROINTESTINAL: normal bowel sounds, soft, nontender, nondistended MUSCULOSKELETAL: strength 5/5 throughout, head is normocephalic and atraumatic SKIN: warm and dry NEUROLOGIC: CN 2-12 grossly intact, no sensory deficit, normal cognition, normal speech, no gross focal deficits. PSYCHIATRIC: alert cooperative and oriented to person, place and time. Results & Data Vital Signs (Past 12 Hours) Vital Signs Temp Pulse Pulse Resp BP BP Pulse Ox 06/20/19 15:55 36.6 C 65 20 97/67 L 95 06/20/19 07:32 36.5 C 69 15 102/67 94 Medications Administered Current Inpatient Medications Acetaminophen (Tylenol) 650 mg PO Q6H PRN PRN Reason: Pain or Fever Stop: 07/19/19 15:18 Enoxaparin Sodium (Lovenox) 40 mg SQ Q24H [facility] Stop: 07/21/19 08:59 Ergocalciferol (Vitamin D2) 50,000 units PO MoFr@0900 [facility] Stop: 07/18/19 09:14 Last Admin: 06/18/19 09:15 Dose: 50,000 units Documented by: Ioversol (Optiray 320 100ml) 94 ml IV ONCE PRN PRN Reason: Interaction Checking Stop: 06/22/19 09:23 Last Admin: 06/18/19 09:24 Dose: 94 ml Documented by: Levothyroxine Sodium (Synthroid) [facility]: 07/21/19 06:29 Ondansetron HCl (Zofran) 4 mg IV Q6H PRN PRN Reason: Nausea Stop: 07/16/19 23:01 Last Admin: 06/17/19 11:35 Dose: 4 mg Documented by: Sennosides (Senokot) 8.8 mg PO BID PRN PRN Reason: Constipation Stop: 07/19/19 05:52 Last Admin: 06/19/19 10:30 Dose: 8.8 mg Documented by:
[2019-06-21] MEDS ORDERED: LEVOTHYROXINE SODIUM 125 MCG TABLET PO SCH (06:30)
--- NOTE | 2019-06-21 07:22 | Surgery Progress Note ---
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 Denies abdominal pain. Passing flatus. Tolerating current diet. Continues to ambulate around the hallways without issue. wants to go home bm this am Physical Exam Constitutional: well developed and well nourished; no acute distress Respiratory: normal respiratory effort; no respiratory distress Cardiovascular: Rate/Rhythm: regular rate Skin: no rashes, warm and dry Neurologic: awake Psychiatric: Orientation: alert Results & Data Vital Signs (Past 12 Hours) Vital Signs Temp Pulse Resp BP Pulse Ox 06/20/19 23:17 36.6 C 60 18 101/57 L 97 PG Care Time/CCT Total # of Minutes Spent Total Time Spent with Patient: Total time spent is greater than 50% in coordination of care (as documented) at patient's floor/unit and/or counseling patient:
[2019-06-21] MEDS ORDERED: ENOXAPARIN INJ 40 MG/0.4 ML SYR SQ SCH (09:00)
[2019-06-21] MEDS: ERGOCALCIFEROL 50,000 UNITS CAP PO SCH (09:16)
--- NOTE | 2019-06-21 13:34 | Discharge Summary ---
Date of Service June 21, 2019 Principal Diagnosis SBO secondary hyperparathyroidism thyroid nodule hypothyroidism Discharge Data Allergies Allergy/AdvReac Type Severity Reaction Status Date / Time No Known Allergies Allergy Verified 06/16/19 20:13 Consultations 06/16/19 21:05 ED Decision to Admit Stat 06/16/19 21:06 Consult General Surgery Stat Ordered Studies 06/16/19 19:43 CT abd pelvis IV con only Stat 06/18/19 07:11 CT abd pelvis oral and IV con Urgent 06/18/19 08:14 US thyroid Routine Hospital Course (1) Small bowel obstruction: Continues to improve. Continue low fiber diet. Cont surgical recs. L ikely dc to home in am. (2) Secondary hyperparathyroidism: 2/2 vitamin D deficiency. Replacing with ergocalciferol now. Repeat 25 OH,PTH, Ca as outpatient in PCP followup. PTHrp also pending to ensure no malignancy which is thought to be less likely. (3) Hypothyroidism: New diagnosis. Was given IV Synthroid while on NGT. Will transition her to PO in am. Will need follow-up with PCP and Endocrinology/ENT regarding thyroid nodule workup and continued monitoring after this treatment initiation. (4) Thyroid nodule: outpatient workup needed (5) DVT prophylaxis: Lovenox/ambulation Full Code Dispo-to home when medically stable and cleared by surgery, likely tomorrow. Tabby Pena DO [facility] Hospitalist Discharge Plan Discharge Items Patient Disposition: Home - Self-Care Reason For Visit: ABDOMINAL PAIN Discharge Diagnosis: SBO secondary hyperparathyroidism thyroid nodule hypothyroidism Condition on Discharge: Good Activity: Resume your previous activity Non-emergency contact: Primary Care Provider Call non-emergency contact if: you have any medication questions, your symptoms worsen, your pain is not controlled, your pain is worsening, your pain is unusual for you, your pain is concerning for you and you have a fever Follow-up/Referrals: Gabe Vance [Primary Care Provider] - Diet: Low Fiber Stand-Alone Forms: Call Back Authorization, [facility], Smoking Cessation Medications and DC Order Prescriptions: New levothyroxine [Synthroid] 125 mcg Tablet 125 mcg PO DAILYBB Qty: 30 RF: 1 ergocalciferol (vitamin D2) 1,250 mcg (50,000 unit) Capsule 50,000 unit PO Q7D Qty: 10 RF: 10 sennosides [senna] 8.8 mg/5 mL Syrup 5 ml PO BID PRN (Reason: constipation) Qty: 236 RF: 0 Continued multivitamin Tablet 1 tab PO DAILY RF: 0 Krames/Other Patient Handouts: DVT Complications, Obstruction Sm Bowel, DVT Prevent Admission Data Admit Date/Time: 06/16/19 22:09 Attending Provider: Tabby Pena Admit Provider: Cristopher Lewis Primary Care Provider: Gabe Vance Other Providers: Cristopher Lewis ; Timmy Varela Other Interventions: Discharge Summary Assessment (RN) Last Done: 06/21/19 10:47
== END 2019-06-21 16:27 | disposition home or self-care (01) | DRG 389 ==
LOC: ED 19:16 → 3W 22:09 → SUATTDRO 22:09 → 3W 22:54

== ENCOUNTER 2021-04-08 09:52 | Observation (INO) ==
--- NOTE | 2021-04-08 10:25 | Emergency Department Note ---
History of Present Illness General Chief complaint: GI Assessment Stated complaint: ABD PAIN,HASNT HAD BM FOR A FEW DAY Time Seen by Provider: 04/08/21 10:11 History of Present Illness Maximum Pain Intensity: 8 This is a 60-year-old female with a history of abdominal surgeries that presents to the emergency department via private vehicle accompanied by daughter with complaints of "abdominal pain, unable to eat or move bowels for the past few days". The patient notes abdominal pain for the past week. It is generalized in nature. No known trauma or injury. She notes that she has not been able to move her bowels for the past few days and also is not able to tolerate food or water. No vomiting. Patient has a history of "bowel rupture" in 2009. She had a colostomy for 7-1/2 months. Current pain 8/10. It is constant and sharp in nature. No chest pain or shortness of breath. No fevers. Home Medications Medication Instructions Recorded Confirmed Type multivitamin 1 tab PO DAILY 06/16/19 04/08/21 History sennosides 8.8 mg/5 mL oral syrup 5 ml PO BID PRN #236 ml 06/21/19 04/08/21 Rx (senna) Allergies Allergy/AdvReac Type Severity Reaction Status Date / Time No Known Allergies Allergy Verified 06/16/19 20:13 Past Med/Surg History Medical History (Updated 04/08/21 @ 13:58 by Nicolas Joe PA-C) Rupture of bowel Surgical History History of partial hysterectomy Family History Other No pertinent family history Social History Smoking Status: Current every day smoker Cigarettes Per Day: 20; Hx Alcohol Use: Yes Alcohol type: beer and other Hx Substance Use: No Preferred Language: Kiswahili Communication Ability: Effective [employer] Required: No Beliefs That Will Affect Care: None marital status: Current Living Situation: Spouse Feels Safe at Home: Yes Assistive Devices: Denture - Upper, Denture - Lower and Glasses Review of Systems A total of 10 systems reviewed and were otherwise negative Physical Exam Vital Signs Vital Signs - 24 hr 04/08/21 09:54 04/08/21 10:43 04/08/21 11:18 Temperature 37.2 C Temperature Source Temporal Artery Scan Pulse Rate 103 H Pulse Rate [Left Finger] 72 Pulse Rhythm [Left Finger] Regular Pulse Strength [Left Finger] Normal Respiratory Rate 18 20 Respiratory Effort / Characteristics Non-Labored Non-Labored Spontaneous Respiratory Depth Normal Normal Respiratory Pattern Regular Blood Pressure 117/60 Blood Pressure [Right Arm] 100/56 L Blood Pressure Mean 79 Blood Pressure Mean [Right Arm] 70 Blood Pressure Position [Right Arm] Sitting Pulse Oximetry 94 95 93 Oxygen Delivery Method Room Air Room Air Room Air Sepsis Recent Fever Within 48 Hours No Sepsis New/Unexplained Change in Mental Status No Sepsis Action Taken by Nursing No Action Required 04/08/21 12:30 Temperature Temperature Source Pulse Rate Pulse Rate [Left Finger] 76 Pulse Rhythm [Left Finger] Regular Pulse Strength [Left Finger] Normal Respiratory Rate 20 Respiratory Effort / Characteristics Non-Labored Spontaneous Respiratory Depth Normal Respiratory Pattern Regular Blood Pressure Blood Pressure [Right Arm] 101/58 L Blood Pressure Mean Blood Pressure Mean [Right Arm] 72 Blood Pressure Position [Right Arm] Sitting Pulse Oximetry 92 Oxygen Delivery Method Room Air Sepsis Recent Fever Within 48 Hours Sepsis New/Unexplained Change in Mental Status Sepsis Action Taken by Nursing VITAL SIGNS - Vital signs and nursing notes were reviewed. Stable and afebrile. GENERAL - 60-year-old female appearing her stated age who is in no acute distress. Communicates well with provider and answers questions appropriately. SKIN - Without rashes. HEAD - NC/AT. EYES - PERRL with EOMI bilaterally. Sclera anicteric. EARS - No deformities of external structures noted on gross examination bilaterally. NOSE - Midline and without cyanosis. No epistaxis or purulent drainage noted. MOUTH/OROPHARYNX - Without perioral cyanosis. NECK - Neck with FROM. No nuchal rigidity. LUNGS - Chest wall symmetric without accessory muscle use, intercostals retractions, or central cyanosis. Normal vesicular breath sounds CTA B/L. No wheezes, rales, or rhonchi appreciated. CARDIAC - RRR with S1/S2. No murmur, rubs, or gallops appreciated. ABDOMEN - Abdominal contour normal without pulsations or visible masses. Bowel sounds hyperactive. Midline abdominal surgical scar noted. No dehiscence. No evidence of recent surgery. Generalized abdominal tenderness. No palpable masses, hepatosplenomegaly, or ascites noted. EXTREMITIES - No clubbing or peripheral cyanosis. +5/5 strength noted in UE/LE bilaterally. NEUROLOGIC - Cranial nerves II through XII grossly intact. PSYCH - A&O, and cooperates fully with examiner. Pt is very pleasant and interacts well with examiner. Course Administered Medications Discontinued Medications Ioversol (Optiray 320 100ml) 94 ml IV ONCE ONE Stop: 04/08/21 11:27 Last Admin: 04/08/21 11:26 Dose: 94 ml Documented by: [id number] Morphine Sulfate (Morphine Sulfate 4 Mg/Ml 1 Ml Carp\\Vial) 4 mg IV NOW STA Stop: 04/08/21 10:27 Last Admin: 04/08/21 10:38 Dose: 4 mg Documented by: [id number] Ondansetron HCl (Ondansetron Inj 2 Mg/Ml 2 Ml Vial) 4 mg IV NOW STA Stop: 04/08/21 10:27 Last Admin: 04/08/21 10:38 Dose: 4 mg Documented by: [id number] Medical Decision Making Laboratory Data Result diagrams: 04/08/21 10:05 04/08/21 10:05 Lab Results 04/08/21 04/08/21 04/08/21 Range/Units 10:05 10:05 10:32 WBC 8.43 (4.8-10.8) K/uL RBC 4.37 (4.2-5.4) M/uL Hgb 13.2 (12.0-16.0) g/dL Hct 38.9 (37-47) % MCV 89.0 (80-100) fL MCH 30.2 (25-34) pg MCHC 33.9 (32-36) g/dL RDW Std Deviation 44.3 (36.4-46.3) fL RDW Coeff of Trace 13.4 (11.5-14.5) % Plt Count 366 (130-400) K/uL MPV 10.4 (7.4-10.4) fL Immature Gran % (Auto) 0.1 % Neut % (Auto) 63.3 % Lymph % (Auto) 20.8 % Nuckolls % (Auto) 13.3 % Eos % (Auto) 2.1 % Baso % (Auto) 0.4 % Neut # (Auto) 5.34 (1.4-6.5) K/uL Lymph # (Auto) 1.75 (1.2-3.4) K/uL Nuckolls # (Auto) 1.12 H (0.11-0.59) K/uL Eos # (Auto) 0.18 (0-0.5) K/uL Baso # (Auto) 0.03 (0-0.2) K/uL Immature Gran # (Auto) 0.01 (0.00-0.02) K/uL Sodium 138 (136-145) mmol/L Potassium 3.7 (3.5-5.1) mmol/L Chloride 107 (98-107) mmol/L Carbon Dioxide 24 (21-32) mmol/L Anion Gap 7.0 (3-11) BUN 7 (7-18) mg/dl Creatinine 0.65 (0.6-1.2) mg/dl Est Cr Clr Drug Dosing 88.3 ml/min Est GFR ( Amer) 113.4 ml/min Est GFR (Non-Af Amer) 97.9 ml/min BUN/Creatinine Ratio 10.2 (10-20) Glucose 101 H (70-99) mg/dl Calcium 10.7 H (8.5-10.1) mg/dl Total Bilirubin 0.5 (0.2-1) mg/dl AST 19 (15-37) U/L ALT 31 (12-78) U/L Alkaline Phosphatase 216 H (45-117) U/L Total Protein 7.5 (6.4-8.2) gm/dl Albumin 3.2 L (3.4-5.0) gm/dl Globulin 4.3 H (2.5-4.0) gm/dl Albumin/Globulin Ratio 0.8 L (0.9-2) Lipase 75 (73-393) U/L Urine Color Urine Appearance (Clear) Urine pH (4.5-7.5) Ur Specific Hastings (1.000-1.030) Urine Protein (Negative) Urine Glucose (UA) (Negative) Urine Ketones (Negative) Urine Blood (Negative) Urine Nitrite (Negative) Urine Bilirubin (Negative) Urine Urobilinogen (Negative) Ur Leukocyte Esterase (Negative) Urine WBC (Auto) (0-5) /hpf Urine RBC (Auto) (0-4) /hpf U Hyaline Cast (Auto) (0-5) /lpf U Epithel Cells (Auto) (0-5) /lpf Urine Bacteria (Auto) (Negative) COVID-19 Eval Order Covid19 at [facility] SARS-CoV-2 (PCR) (Negative) 04/08/21 04/08/21 Range/Units 10:32 11:52 WBC (4.8-10.8) K/uL RBC (4.2-5.4) M/uL Hgb (12.0-16.0) g/dL Hct (37-47) % MCV (80-100) fL MCH (25-34) pg MCHC (32-36) g/dL RDW Std Deviation (36.4-46.3) fL RDW Coeff of Trace (11.5-14.5) % Plt Count (130-400) K/uL MPV (7.4-10.4) fL Immature Gran % (Auto) % Neut % (Auto) % Lymph % (Auto) % Nuckolls % (Auto) % Eos % (Auto) % Baso % (Auto) % Neut # (Auto) (1.4-6.5) K/uL Lymph # (Auto) (1.2-3.4) K/uL N[place]olls # (Auto) (0.11-0.59) K/uL Eos # (Auto) (0-0.5) K/uL Baso # (Auto) (0-0.2) K/uL Immature Gran # (Auto) (0.00-0.02) K/uL Sodium (136-145) mmol/L Potassium (3.5-5.1) mmol/L Chloride (98-107) mmol/L Carbon Dioxide (21-32) mmol/L Anion Gap (3-11) BUN (7-18) mg/dl Creatinine (0.6-1.2) mg/dl Est Cr Clr Drug Dosing ml/min Est GFR ( Amer) ml/min Est GFR (Non-Af Amer) ml/min BUN/Creatinine Ratio (10-20) Glucose (70-99) mg/dl Calcium (8.5-10.1) mg/dl Total Bilirubin (0.2-1) mg/dl AST (15-37) U/L ALT (12-78) U/L Alkaline Phosphatase (45-117) U/L Total Protein (6.4-8.2) gm/dl Albumin (3.4-5.0) gm/dl Globulin (2.5-4.0) gm/dl Albumin/Globulin Ratio (0.9-2) Lipase (73-393) U/L Urine Color Yellow Urine Appearance Clear (Clear) Urine pH 6.5 (4.5-7.5) Ur Specific Hastings 1.027 (1.000-1.030) Urine Protein Negative (Negative) Urine Glucose (UA) Negative (Negative) Urine Ketones Negative (Negative) Urine Blood Negative (Negative) Urine Nitrite Negative (Negative) Urine Bilirubin Negative (Negative) Urine Urobilinogen Negative (Negative) Ur Leukocyte Esterase Trace H (Negative) Urine WBC (Auto) 10-30 H (0-5) /hpf Urine RBC (Auto) 0-4 (0-4) /hpf U Hyaline Cast (Auto) 1-5 (0-5) /lpf U Epithel Cells (Auto) >30 H (0-5) /lpf Urine Bacteria (Auto) 1+ H (Negative) COVID-19 Eval Order SARS-CoV-2 (PCR) NEGATIVE (Negative) Imaging Data Radiologist's Impression: Abdomen/Pelvis CT 04/08/21 10:19 CT abd pelvis IV con only CLINICAL HISTORY: Diffuse abdominal pain. Constipation. History of abdominal surgery for bowel obstruction. COMPARISON STUDY: 06/18/2019 CT DOSE: 327.65 mGy.cm TECHNIQUE: Standard CT of the Abdomen and Pelvis was performed with IV contrast. A dose lowering technique was utilized adhering to the principles of ALARA. Contrast Volume: Optiray 320, 94 ml. The patient did not receive oral contrast. FINDINGS: Lung base: The lung bases are clear. Abdominal cavity: Compared to the previous examination, there has been interval development of mild periaortic adenopathy particularly on the left as seen on image 32 of 89. There is ascites seen with small amount of fluid surrounding the spleen and extending down both paracolic gutters. A moderate amount of pelvic ascites is also present. There is also been interval development of a small anterior lower abdominal wall ventral hernia with a loop of small bowel present within it. However, there is no evidence for bowel obstruction or incarceration. Liver: Compared to the previous examination, there has been interval development of extensive heterogeneously enhancing masses throughout the liver representing metastatic disease. The largest cyst within the uncinate process measuring approximately 5.2 x 4.4 cm. There is no evidence for biliary duct dilatation. Spleen: There is homogeneous attenuation of the splenic parenchyma. There is no enhancing mass lesion. Pancreas: There has been interval development of a large heterogeneously enhancing cystic and solid mass within the body of the pancreas most characteristic of pancreatic cancer. It measures approximately 4.8 x 3.0 cm. Additional sharply defined cyst is now seen involving the tail the pancreas measuring 3.1 x 2.5 cm. No associated solid mass is present with this cyst. Gall Bladder: The gallbladder is well distended with no evidence for intraluminal calculi, wall thickening or pericholecystic edema. Adrenal glands: The adrenal glands are normal in size and attenuation. There is no evidence for enhancing mass lesion. Kidneys: There is homogeneous attenuation of the renal parenchyma bilaterally. There is no evidence for renal calculus or hydronephrosis. There is no evidence for enhancing mass. Incidental note is made of a simple left renal cyst. Bowel: There has been interval abdominal surgery for previous small bowel obstruction. The remaining bowel loops are otherwise normally placed within the abdomen and pelvis without evidence for dilatation or obstruction. This is no evidence for significant fecal stasis, fecal impaction or obstruction of the colon. There are no inflammatory changes present. There is no evidence for free air. Bladder: The bladder is within normal limits with no evidence for focal mass, calculus or diverticulum. : There is no evidence for pelvic mass or adenopathy. The patient is status post hysterectomy. Vasculature: There is no evidence for aneurysmal dilatation of the abdominal aorta. Atherosclerotic calcification is present. Osseous structures: There is no acute osseous pathology. IMPRESSION: 1. Interval development of a large heterogeneously enhancing pancreatic mass characteristic of pancreatic carcinoma. 2. Diffuse liver metastases. 3. Mild periaortic adenopathy is also present. 4. Mild abdominal and moderate pelvic ascites. 5. Small lower abdominal wall hernia with a loop of small bowel present. No evidence for obstruction or incarceration. 6. Additional nonacute findings as delineated above. ACT 112: Negative or not required by law. Electronically signed by: Jam Sharpe M.D. 04/08/2021 11:53 AM MDM Narrative Patient was seen and evaluated as above in room A02. Review was performed of nursing notes and vital signs. I did review pertinent previous visits and patient history. After obtaining a thorough history and physical examination the above work up was performed. Patient presents to us today with generalized abdominal pain, inability to tolerate food or fluids and no bowel movement times few days as well. She does appear to be overall in pain. Vital signs stable. Options of care were discussed with the patient. IV access was established. Labs were drawn. No leukocytosis or concerning anemia. No emergent metabolic disturbance. Mild hyperglycemia at 101 and hypercalcemia 10.7. Alk phos elevated at 216. Lipase normal. Urinalysis does not suggest infection, rather more of a contaminated sample. Covid testing negative. CT scan was obtained of the abdomen and pelvis. Patient was medicated with IV morphine and IV Zofran. CT scan results unfortunately reveal interval development of a large heterogeneously enhancing pancreatic mass characteristic of pancreatic carcinoma. Diffuse liver metastases. Additional findings as noted within the report. There is also comment of a hernia with a loop of small bowel present however I will note that I do not believe this is causing the patient's pain at this time, rather believe it is likely secondary to the pancreatic findings. Patient overall has a benign abdominal exam. Given the patient's pain in the outpatient setting, recent diagnosis here today I do believe that further evaluation and management the inpatient setting is warranted. Case discussed with the hospitalist. Please refer to further documentation regarding her stay. Case was discussed with the attending physician. GCS: 15 In the evaluation and treatment of this patient the following differential diagnoses were entertained: Bowel obstruction, AAA, perforation, pancreatitis, malignancy, UTI, pyelonephritis, hernia, among others. Impression & Plan Pancreatic mass, Liver metastasis, Abdominal pain Discharge Plan Visit Data Chief Complaint: GI Assessment Stated Complaint: ABD PAIN,HASNT HAD BM FOR A FEW DAY ED Provider: Heather Colbert ED Midlevel Provider: Nicolas Joe Discharge Problem: Pancreatic mass, Liver metastasis, Abdominal pain Patient Disposition: Admitted As Inpatient Condition: Good Forms Stand Alone Forms: My [employer] Prescriptions Prescriptions: No Action multivitamin Tablet 1 tab PO DAILY RF: 0 sennosides [senna] 8.8 mg/5 mL Syrup 5 ml PO BID PRN (Reason: constipation) Qty: 236 RF: 0 Referrals Referrals: Gabe Vance [Outside Practitioners] -
[2021-04-08] MEDS ORDERED: MoRPHine SULFATE 4 MG/ML 1 ML CARP\\VIAL IV STA ×2 (10:26→13:34)
[2021-04-08] MEDS ORDERED: ONDANSETRON INJ 2 MG/ML 2 ML VIAL IV STA (10:26)
[2021-04-08 10:59] LABS: Basophils # (auto) 0.03 K/uL (0-0.2); Basophils % (auto) 0.4 %; Eosinophils # (auto) 0.18 K/uL (0-0.5); Eosinophils % (auto) 2.1 %; Hematocrit (blood only) 38.9 % (37-47); Hemoglobin 13.2 g/dL (12.0-16.0); Immature Granulocytes # (auto) 0.01 K/uL (0.00-0.02); Immature Granulocytes % (auto) 0.1 %; Lymphocytes # (auto) 1.75 K/uL (1.2-3.4); Lymphocytes % (auto) 20.8 %; Mean Corpuscular Hemoglobin 30.2 pg (25-34); Mean Corpuscular Hgb Conc 33.9 g/dL (32-36); Mean Platelet Volume 10.4 fL (7.4-10.4); Monocytes # (auto) 1.12 K/uL (0.11-0.59); Monocytes % (auto) 13.3 %; Neutrophils # (auto) 5.34 K/uL (1.4-6.5); Neutrophils % (auto) 63.3 %; Platelet Count 366 K/uL (130-400); RDW Coefficient of Variation 13.4 % (11.5-14.5); RDW Standard Deviation 44.3 fL (36.4-46.3); Red Blood Count 4.37 M/uL (4.2-5.4); White Blood Count 8.43 K/uL (4.8-10.8)
[2021-04-08 11:06] LABS: Albumin Level 3.2 gm/dl (3.4-5.0); BUN Creatinine Ratio 10.2 (10-20); Calcium 10.7 mg/dl (8.5-10.1); Creatinine Clr Calc Pharmacy 88.3 ml/min; Est GFR (African American) 113.4 ml/min; Est GFR (Non-African American) 97.9 ml/min; Potassium 3.7 mmol/L (3.5-5.1)
[2021-04-08 11:09] LABS: Albumin Globulin Ratio 0.8 (0.9-2); Bilirubin,Total 0.5 mg/dl (0.2-1); Globulin 4.3 gm/dl (2.5-4.0); Total Protein 7.5 gm/dl (6.4-8.2)
[2021-04-08] MEDS ORDERED: OPTIRAY 320 100ml IV ONE (11:26)
--- NOTE | 2021-04-08 11:55 | CT Scan Report ---
CT abd pelvis IV con only CLINICAL HISTORY: Diffuse abdominal pain. Constipation. History of abdominal surgery for bowel obstru ction. COMPARISON STUDY: 06/18/2019 CT DOSE: 327.65 mGy.cm TECHNIQUE: Standard CT of the Abdomen and Pelvis was performed with IV contrast. A dose lowering manuel hnique was utilized adhering to the principles of ALARA. Contrast Volume: Optiray 320, 94 ml. The patient did not receive oral contrast. FINDINGS: Lung base: The lung bases are clear. Abdominal cavity: Compared to the previous examination, there has been interval development of mild p eriaortic adenopathy particularly on the left as seen on image 32 of 89. There is ascites seen with s mall amount of fluid surrounding the spleen and extending down both paracolic gutters. A moderate kaci unt of pelvic ascites is also present. There is also been interval development of a small anterior lower abdominal wall ventral hernia with a loop of small bowel present within it. However, there is no evidence for bowel obstruction or incar ceration. Liver: Compared to the previous examination, there has been interval development of extensive heterog eneously enhancing masses throughout the liver representing metastatic disease. The largest cyst with in the uncinate process measuring approximately 5.2 x 4.4 cm. There is no evidence for biliary duct d ilatation. Spleen: There is homogeneous attenuation of the splenic parenchyma. There is no enhancing mass lesion . Pancreas: There has been interval development of a large heterogeneously enhancing cystic and solid m ass within the body of the pancreas most characteristic of pancreatic cancer. It measures approximate ly 4.8 x 3.0 cm. Additional sharply defined cyst is now seen involving the tail the pancreas measurin g 3.1 x 2.5 cm. No associated solid mass is present with this cyst. Gall Bladder: The gallbladder is well distended with no evidence for intraluminal calculi, wall thick ening or pericholecystic edema. Adrenal glands: The adrenal glands are normal in size and attenuation. There is no evidence for enhan cing mass lesion. Kidneys: There is homogeneous attenuation of the renal parenchyma bilaterally. There is no evidence f or renal calculus or hydronephrosis. There is no evidence for enhancing mass. Incidental note is made of a simple left renal cyst. Bowel: There has been interval abdominal surgery for previous small bowel obstruction. The remaining bowel loops are otherwise normally placed within the abdomen and pelvis without evidence for dilatati on or obstruction. This is no evidence for significant fecal stasis, fecal impaction or obstruction o f the colon. There are no inflammatory changes present. There is no evidence for free air. Bladder: The bladder is within normal limits with no evidence for focal mass, calculus or diverticulu m. : There is no evidence for pelvic mass or adenopathy. The patient is status post hysterectomy. Vasculature: There is no evidence for aneurysmal dilatation of the abdominal aorta. Atherosclerotic c alcification is present. Osseous structures: There is no acute osseous pathology. IMPRESSION: 1. Interval development of a large heterogeneously enhancing pancreatic mass characteristic of pancre atic carcinoma. 2. Diffuse liver metastases. 3. Mild periaortic adenopathy is also present. 4. Mild abdominal and moderate pelvic ascites. 5. Small lower abdominal wall hernia with a loop of small bowel present. No evidence for obstruction or incarceration. 6. Additional nonacute findings as delineated above. ACT 112: Negative or not required by law. Electronically signed by: Jam Sharpe M.D. 04/08/2021 11:53 AM
[2021-04-08 11:58] LABS: Appearance Urine Clear (Clear); Bacteria Urine Automated 1+ (Negative); Bilirubin Urine Negative (Negative); Blood Urine Negative (Negative); Color Urine Yellow; Epithelial Cell Urine Auto >30 /lpf (0-5); Glucose Urine UA Negative (Negative); Ketones Urine Negative (Negative); Leukocyte Esterase Urine Trace (Negative); Nitrite Urine Negative (Negative); Protein Urine Negative (Negative); RBC Urine Automated 0-4 /hpf (0-4); Specific Gravity Urine 1.027 (1.000-1.030); Urobilinogen Urine Negative (Negative); pH Urine 6.5 (4.5-7.5)
--- NOTE | 2021-04-08 12:34 | History & Physical Report ---
Date of Service April 08, 2021 Assessment & Plan (1) Abdominal pain: (2) Pancreatic mass: Plan: - Admit to med surg - Consult oncology- Dr. Whitten aware - add on CA 19-9 - CT abd pelvis reviewed showing pancreatic mass large heterogeneously enhancing cystic and solid mass within the body of the pancreas most characteristic of pancreatic cancer. It measures approximately 4.8 x 3.0 cm. Additional sharply defined cyst is now seen involving the tail the pancreas m easuring 3.1 x 2.5 cm. Previous imaging does not show any indication of pancreas or mass/abnormality. - Need biopsy for formal diagnosis - discussed/consulted with GI - Dr. Gamez plans to do EUS tomorrow. - Pain control - Continue IVFs with poor appetite, generalized malaise - Palliative care consultation for goals of care discussion during hospital stay - pt is a DNR/DNI (3) Liver metastasis: Plan: - As noted on imaging. As above (4) Hypothyroidism: Plan: - Pt stopped taking medication 1 week ago, will need to resume but unsure of dose, pt unsure, not available in ext med history in chart. (5) Secondary hyperparathyroidism: Plan: - Secondary to above DVT ppx: - teds, scds CODE: DNR/DNI Dispo: From home, likely to remain in the hospital x 1-2 days History of Present Illness Primary Care Provider: Sherri Van This is a 60 yo F with PMhx of hypothyroidism, hx of small bowel obstruction, ruptured diverticulitis status post colostomy, reversal colostomy in 2009 and then had a hernia surgery, complication from her previous surgery. Then in 2016,she had laparoscopic lysis of adhesions and possible mesh placement at [facility]. She was previously hospitalized in Jun 2019 for small bowel obstruction. Today she presents with new onset of 1 week of abdominal pain, poor appetite, nausea, generalized malaise. She had initially thought that her pain was due to taking levothyroxine, so stopped this medication last week when the pain started as a chronic dull pain. Yesterday morning after the patient had eaten dinner she felt a crippling abdominal pain which brought her to her knees, in the position on the ground. Fluids and food continue to make her pain in her abdomen worse despite trying small amounts in past 24 hours. She admits to a weight loss of 10 pounds within the past year. Denies any night sweats or swollen lymph nodes. Today she continued to not feel well pain is now radiating to her back, under her rib cage. IV morphine in the ER helped alleviate pain. Her work-up in the ER included with elevated alk phos of 216 among other fairly normal labs and CT of the abdomen and pelvis reveals new pancreatic mass within the body of the pancreas most characteristic of pancreatic cancer. It measures approximately 4.8 x 3.0 cm. Additional sharply defined cyst is now seen involving the tail the pancreas measuring 3.1 x 2.5 cm. Her urinalysis is suggestive of a urinary tract infection, however the pt does not endorse symptoms currently. Pt reports that she is interested in treatment and seeing an oncologist. Reports family hx of cancers, mother dying of colon cancer, paternal grandfather with prostate cancer. Her also within the past 2 years per daughter who is tearful through the entire visit. 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 The patient reports knowing she is being well taken care of, is episcopalian and believes in Chip who will get her through this. Denies smoking or drinking history. Allergies Allergy/AdvReac Type Severity Reaction Status Date / Time No Known Allergies Allergy Verified 06/16/19 20:13 Home Medications Medication Instructions Recorded Confirmed Type multivitamin 1 tab PO DAILY 06/16/19 04/08/21 History sennosides 8.8 mg/5 mL oral syrup 5 ml PO BID PRN #236 ml 06/21/19 04/08/21 Rx (senna) Past Med/Surg History Medical History (Updated 04/08/21 @ 13:58 by Nicolas Joe PA-C) Rupture of bowel Surgical History History of partial hysterectomy Family History Other No pertinent family history Social History Smoking Status: Current every day smoker Cigarettes Per Day: 10; Do You Dip or Chew Tobacco: No; Hx Alcohol Use: Yes Alcohol type: beer and wine Hx Substance Use: No Preferred Language: Congolese Communication Ability: Effective Office Worker Required: No Beliefs That Will Affect Care: None marital status: Current Living Situation: Spouse Other Information That Helps Us Care for You: No Feels Safe at Home: Yes Safety Concerns: Feels Safe At This Time Assistive Devices: Denture - Upper, Denture - Lower and Glasses Review of Systems Review of Systems: Constitutional: No fever, sweats or chills Eyes: No diplopia, no worsening or blurred vision ENT: normal hearing, no trouble swallowing Respiratory: No cough, sputum, dyspnea at rest or on exertion Cardiovascular: No chest pain, tightness or palpitations Abdomen: + As per HPI +Pain,+ nausea, +vomiting, no diarrhea or constipation Musculoskeletal: No joint pain, calf pain, swelling Neurologic: No weakness, numbness/tingling, or balance problems Psychiatric: No anxiety or depression Skin: No rash or itch Physical Exam Physical Exam: General: awake, alert, no apparent distress, BMI 24. 6 Head: Normocephalic, atraumatic ENT: PERRL, EOMI, no pharyngeal exudate, mucous membranes moist, no cervical or supraclavicular or subclavicular lymphadenopathy Chest: Clear to auscultation, on room air, no adventitious breath sounds, no axillary lymphadenopathy Cardiac: Regular rate and rhythm, no murmur, no JVD, normal peripheral pulses, good capillary refill Abdominal: NABS x 4 quadrants, soft, nondistended, +tender to palpation in epigastric region, no rebound or guarding Extremities: Normal inspection, no peripheral edema or erythema, calfs nontender to palpation Psych: Normal mood and affect Neuro: AAO x 3, strength intact bilaterally and rated 5/5, no motor deficits, speech is clear, no peripheral sensory deficits Results & Data Results & Data ([facility]) Vital Signs (Past 12 Hours) Vital Signs Temp Pulse Pulse Resp BP BP Pulse Ox 04/08/21 11:18 72 20 100/56 L 93 04/08/21 10:43 95 04/08/21 09:54 37.2 C 103 H 18 117/60 94 Diagnostic Findings Abdomen/Pelvis CT 04/08/21 10:19 CT abd pelvis IV con only CLINICAL HISTORY: Diffuse abdominal pain. Constipation. History of abdominal surgery for bowel obstruction. COMPARISON STUDY: 06/18/2019 CT DOSE: 327.65 mGy.cm TECHNIQUE: Standard CT of the Abdomen and Pelvis was performed with IV contrast. A dose lowering technique was utilized adhering to the principles of ALARA. Contrast Volume: Optiray 320, 94 ml. The patient did not receive oral contrast. FINDINGS: Lung base: The lung bases are clear. Abdominal cavity: Compared to the previous examination, there has been interval development of mild periaortic adenopathy particularly on the left as seen on i mage 32 of . There is ascites seen with small amount of fluid surrounding the spleen and extending down both paracolic gutters. A moderate amount of pelvic ascites is also present. There is also been interval development of a small anterior lower abdominal wall ventral hernia with a loop of small bowel present within it. However, there is no evidence for bowel obstruction or incarceration. Liver: Compared to the previous examination, there has been interval development of extensive heterogeneously enhancing masses throughout the liver representing metastatic disease. The largest cyst within the uncinate process measuring approximately 5.2 x 4.4 cm. There is no evidence for biliary duct dilatation. Spleen: There is homogeneous attenuation of the splenic parenchyma. There is no enhancing mass lesion. Pancreas: There has been interval development of a large heterogeneously enhancing cystic and solid mass within the body of the pancreas most characteristic of pancreatic cancer. It measures approximately 4.8 x 3.0 cm. Additional sharply defined cyst is now seen involving the tail the pancreas measuring 3.1 x 2.5 cm. No associated solid mass is present with this cyst. Gall Bladder: The gallbladder is well distended with no evidence for intraluminal calculi, wall thickening or pericholecystic edema. Adrenal glands: The adrenal glands are normal in size and attenuation. There is no evidence for enhancing mass lesion. Kidneys: There is homogeneous attenuation of the renal parenchyma bilaterally. There is no evidence for renal calculus or hydronephrosis. There is no evidence for enhancing mass. Incidental note is made of a simple left renal cyst. Bowel: There has been interval abdominal surgery for previous small bowel obstruction. The remaining bowel loops are otherwise normally placed within the abdomen and pelvis without evidence for dilatation or obstruction. This is no evidence for significant fecal stasis, fecal impaction or obstruction of the colon. There are no inflammatory changes present. There is no evidence for free air. Bladder: The bladder is within normal limits with no evidence for focal mass, calculus or diverticulum. : There is no evidence for pelvic mass or adenopathy. The patient is status post hysterectomy. Vasculature: There is no evidence for aneurysmal dilatation of the abdominal aorta. Atherosclerotic calcification is present. Osseous structures: There is no acute osseous pathology. IMPRESSION: 1. Interval development of a large heterogeneously enhancing pancreatic mass characteristic of pancreatic carcinoma. 2. Diffuse liver metastases. 3. Mild periaortic adenopathy is also present. 4. Mild abdominal and moderate pelvic ascites. 5. Small lower abdominal wall hernia with a loop of small bowel present. No evidence for obstruction or incarceration. 6. Additional nonacute findings as delineated above. ACT 112: Negative or not required by law. Electronically signed by: Jam Sharpe M.D. 04/08/2021 11:53 AM Code Status & VTE Plan Code Status DNR/DNI- discussed with pt and daughter at bedside Supervising Physician Co-Signing Physician Notes 60 yo F with PMhx of hypothyroidism, small bowel obstruction, ruptured diverticulitis status post colostomy, reversal colostomy in 2009 and then had a hernia surgery, complication from her previous surgery. Then in 2016,she had laparoscopic lysis of adhesions and possible mesh placement at [facility]. She was previously hospitalized in Jun 2019 for small bowel obstruction. She presented 04/08 with complaint of increasing belly pain associated with constipation since last 5 days. Patient reports not passing gas since last 1 to 2 days. Patient reports nausea but no vomiting. Her appetite has decreased recently. In the ED she was found to have abnormal pancreatic mass, GI consulted, plan for scope with possible biopsy tomorrow. We will get surgery on board for obstipation. We will hold on any laxatives until evaluated by surgery. Upon examination: GENERAL: Alert and oriented x3. NAD, on RA. HEENT: No pallor, no icterus. Pupils equal, round and reactive to light. Oral mucosa moist. NECK: No JVD, no neck masses. HEART: S1 and S2 heard. Regular rate and rhythm. No murmur, no gallop. RESPIRATORY SYSTEM: Normal AP diameter. No accessory muscle use. No wheezing, no crackles. ABDOMEN: Soft, bowel sounds decreased, lower belly tenderness on deep palpation, no distention. CENTRAL NERVOUS SYSTEM: Alert and oriented x3. No facial droop. Speech is clear. Obeys simple commands. Moves extremities. EXTREMITIES: No edema, no erythema seen. I have seen and examined the patient and have discussed the case with the provider above. I agree with the assessment and plan as stated. (1) Abdominal pain Abdominal location: unspecified location Qualified Code(s): R10.9 - Unspecified abdominal pain
[2021-04-08] MEDS ORDERED: METOCLOPRAMIDE HCL INJ 5 MG/ML 2 ML VIAL IV STA (14:40)
[2021-04-08] MEDS ORDERED: ACETAMINOPHEN 325 MG TAB PO PRN (14:59)
[2021-04-08] MEDS ORDERED: ONDANSETRON INJ 2 MG/ML 2 ML VIAL IV PRN (14:59)
[2021-04-08] MEDS ORDERED: SENNOSIDES 8.8 MG/5 ML UDC PO PRN (14:59)
[2021-04-08] MEDS ORDERED: MoRPHine SULFATE 4 MG/ML 1 ML CARP\\VIAL IV PRN (14:59)
[2021-04-08] MEDS ORDERED: bisacodyL 10 MG SUPP PR PRN (14:59)
[2021-04-08] MEDS: SODIUM CHLORIDE 0.9% 1000ML 1,000 ML IV SCH ×2 (15:54→23:44)
[2021-04-08] MEDS: POLYETHYLENE (MIRALAX) 17 GM PACK PO SCH (15:54)
[2021-04-08] MEDS: ENOXAPARIN INJ 40 MG/0.4 ML SYR SQ SCH (17:28)
--- NOTE | 2021-04-08 22:06 | Surgery Consultation ---
Date of Consultation April 08, 2021 Assessment & Plan (1) Obstipation: pt is a 60 year-old female who was admitted to hospital for no BM for 1 week, I was asked for consult obstipation, CT finding: IMPRESSION: 1. Interval development of a large heterogeneously enhancing pancreatic mass characteristic of pancreatic carcinoma. 2. Diffuse liver metastases. 3. Mild periaortic adenopathy is also present. 4. Mild abdominal and moderate pelvic ascites. 5. Small lower abdominal wall hernia with a loop of small bowel present. No evidence for obstruction or incarceration. 6. Additional nonacute findings as delineated above. Plan: no emergent surgery indication now, conservative treatment, base on large pancreatic mas and liver metastases, pt is not candidate for ventral hernia repair, will F/U, Supervising Physician Co-Signing Physician Notes 60 yo F with PMhx of hypothyroidism, small bowel obstruction, ruptured diverticulitis status post colostomy, reversal colostomy in 2009 and then had a hernia surgery, complication from her previous surgery. Then in 2016,she had laparoscopic lysis of adhesions and possible mesh placement at [facility]. She was previously hospitalized in Jun 2019 for small bowel obstruction. She presented 04/08 with complaint of increasing belly pain associated with constipation since last 5 days. Patient reports not passing gas since last 1 to 2 days. Patient reports nausea but no vomiting. Her appetite has decreased recently. In the ED she was found to have abnormal pancreatic mass, GI consulted, plan for scope with possible biopsy tomorrow. We will get surgery on board for obstipation. We will hold on any laxatives until evaluated by surgery. Upon examination: GENERAL: Alert and oriented x3. NAD, on RA. HEENT: No pallor, no icterus. Pupils equal, round and reactive to light. Oral mucosa moist. NECK: No JVD, no neck masses. HEART: S1 and S2 heard. Regular rate and rhythm. No murmur, no gallop. RESPIRATORY SYSTEM: Normal AP diameter. No accessory muscle use. No wheezing, no crackles. ABDOMEN: Soft, bowel sounds decreased, lower belly tenderness on deep palpation, no distention. CENTRAL NERVOUS SYSTEM: Alert and oriented x3. No facial droop. Speech is clear. Obeys simple commands. Moves extremities. EXTREMITIES: No edema, no erythema seen. I have seen and examined the patient and have discussed the case with the provider above. I agree with the assessment and plan as stated. History of Present Illness Reason for Consultation: Obstipation Requesting Physician: Shania Laws MD Attending Physician: Shania Laws MD History of Present Illness History of Present Illness Primary Care Provider: Sherri Van CC: constipation HPI: This is a 60 yo F with PMhx of hypothyroidism, hx of small bowel obstruction, ruptured diverticulitis status post colostomy, reversal colostomy in 2009 and then had a hernia surgery, complication from her previous surgery. Then in 2016,she had laparoscopic lysis of adhesions and possible mesh placement at [facility]. She was previously hospitalized in Jun 2019 for small bowel obstruction. Today she presents with new onset of 1 week of abdominal pain, poor appetite, nausea, generalized malaise. She had initially thought that her pain was due to taking levothyroxine, so stopped this medication last week when the pain started as a chronic dull pain. Yesterday morning after the patient had eaten dinner she felt a crippling abdominal pain which brought her to her knees, in the position on the ground. Fluids and food continue to make her pain in her abdomen worse despite trying small amounts in past 24 hours. She admits to a weight loss of 10 pounds within the past year. Denies any night sweats or swollen lymph nodes. Today she continued to not feel well pain is now radiating to her back, under her rib cage. IV morphine in the ER helped alleviate pain. Her work-up in the ER included with elevated alk phos of 216 among other fairly normal labs and CT of the abdomen and pelvis reveals new pancreatic mass within the body of the pancreas most characteristic of pancreatic cancer. It measures approximately 4.8 x 3.0 cm. Additional sharply defined cyst is now seen involving the tail the pancreas measuring 3.1 x 2.5 cm. Her urinalysis is suggestive of a urinary tract infection, however the pt does not endorse symptoms currently. Pt reports that she is interested in treatment and seeing an oncologist. Reports family hx of cancers, mother dying of colon cancer, paternal grandfather with prostate cancer. Her also within the past 2 years per daughter who is tearful through the entire visit. 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 The patient reports knowing she is being well taken care of, is catholic and believes in Chip who will get her through this. Denies smoking or drinking history. I ( Mauro Vicente MD ) got a call for consult obstipation, I reviewed pt's H/P, labs CT scan with pt, pt passed some gas, no vomiting, Allergies Allergy/AdvReac Type Severity Reaction Status Date / Time No Known Allergies Allergy Verified 06/16/19 20:13 Home Medications Medication Instructions Recorded Confirmed Type multivitamin 1 tab PO DAILY 06/16/19 04/08/21 History sennosides 8.8 mg/5 mL oral syrup 5 ml PO BID PRN #236 ml 06/21/19 Rx (senna) Past Med/Surg History Medical History(Updated 04/08/21 @ 13:58 by Nicolas Joe PA-C) Rupture of bowel Surgical History History of partial hysterectomy Family History Other No pertinent family history Social History Smoking Status: Current every day smoker Cigarettes Per Day: 10; Do You Dip or Chew Tobacco: No; Hx Alcohol Use: Yes Alcohol type: beer and wine Hx Substance Use: No Preferred Language: Slovak Communication Ability: Effective Greeter Required: No Beliefs That Will Affect Care: None marital status: Current Living Situation: Spouse Other Information That Helps Us Care for You: No Feels Safe at Home: Yes Safety Concerns: Feels Safe At This Time Assistive Devices: Denture - Upper, Denture - Lower and Glasses Review of Systems Review of Systems: Constitutional: No fever, sweats or chills Eyes: No diplopia, no worsening or blurred vision ENT: normal hearing, no trouble swallowing Respiratory: No cough, sputum, dyspnea at rest or on exertion Cardiovascular: No chest pain, tightness or palpitations Abdomen: + As per HPI +Pain,+ nausea, +vomiting, no diarrhea or constipation Musculoskeletal: No joint pain, calf pain, swelling Neurologic: No weakness, numbness/tingling, or balance problems Psychiatric: No anxiety or depression Skin: No rash or itch Allergies Allergy/AdvReac Type Severity Reaction Status Date / Time No Known Allergies Allergy Verified 06/16/19 20:13 Home Medications Medication Instructions Recorded Confirmed Type multivitamin 1 tab PO DAILY 06/16/19 04/08/21 History sennosides 8.8 mg/5 mL oral syrup 5 ml PO BID PRN #236 ml 06/21/19 04/08/21 Rx (senna) Patient History Medical History (Updated 04/08/21 @ 22:12 by Mauro Vicente MD) Rupture of bowel Surgical History History of partial hysterectomy Family History Other No pertinent family history Social History Smoking Status: Current every day smoker Cigarettes Per Day: 10; Do You Dip or Chew Tobacco: No; Hx Alcohol Use: Yes Alcohol type: beer and wine Hx Substance Use: No Preferred Language: Slovak Communication Ability: Effective Greeter Required: No Beliefs That Will Affect Care: None marital status: Current Living Situation: Spouse Other Information That Helps Us Care for You: No Feels Safe at Home: Yes Safety Concerns: Feels Safe At This Time Assistive Devices: Denture - Upper, Denture - Lower and Glasses Physical Exam Constitutional: WD/WN, vitals as above Eyes: PERRL, conjunctivae normal, anicteric sclerae Neck: trachea midline, no thyromegaly Respiratory: normal respiratory effort, lungs clear to auscultation Cardiovascular: RRR, no murmur, no edema Gastrointestinal (Abdomen): soft, mild tenderness, no rebound pain, BS +, no distend Musculoskeletal: no cyanosis or clubbing, extremities motor strength 5/5 Neurologic: patellar DTR's 2+ bilat, sensation intact Psychiatric: A+Ox3, euthymic affect Results & Data ([facility]) Vital Signs (Past 12 Hours) Vital Signs Temp Pulse Pulse Resp BP Pulse Ox 04/08/21 15:03 36.8 C 75 16 100/64 94 04/08/21 14:30 74 20 107/55 L 93 04/08/21 14:00 71 20 109/63 91 04/08/21 13:30 79 20 118/55 L 93 04/08/21 12:30 80 20 101/58 L 94 04/08/21 11:18 72 20 100/56 L 93 04/08/21 10:43 95 Laboratory Results Abnormal lab results 04/08/21 04/08/21 04/08/21 Range/Units 10:05 10:05 11:52 [place] # (Auto) 1.12 H (0.11-0.59) K/uL Glucose 101 H (70-99) mg/dl Calcium 10.7 H (8.5-10.1) mg/dl Alkaline Phosphatase 216 H (45-117) U/L Albumin 3.2 L (3.4-5.0) gm/dl Globulin 4.3 H (2.5-4.0) gm/dl Albumin/Globulin Ratio 0.8 L (0.9-2) Ur Leukocyte Esterase Trace H (Negative) Urine WBC (Auto) 10-30 H (0-5) /hpf U Epithel Cells (Auto) >30 H (0-5) /lpf Urine Bacteria (Auto) 1+ H (Negative) Diagnostic Findings CT abd pelvis IV con only CLINICAL HISTORY: Diffuse abdominal pain. Constipation. History of abdominal surgery for bowel obstruction. COMPARISON STUDY: 06/18/2019 CT DOSE: 327.65 mGy.cm TECHNIQUE: Standard CT of the Abdomen and Pelvis was performed with IV contrast. A dose lowering technique was utilized adhering to the principles of ALARA. Contrast Volume: Optiray 320, 94 ml. The patient did not receive oral contrast. FINDINGS: Lung base: The lung bases are clear. Abdominal cavity: Compared to the previous examination, there has been interval development of mild periaortic adenopathy particularly on the left as seen on image 32 of 89. There is ascites seen with small amount of fluid surrounding the spleen and extending down both paracolic gutters. A moderate amount of pelvic ascites is also present. There is also been interval development of a small anterior lower abdominal wall ventral hernia with a loop of small bowel present within it. However, there is no evidence for bowel obstruction or incarceration. Liver: Compared to the previous examination, there has been interval development of extensive heterogeneously enhancing masses throughout the liver representing metastatic disease. The largest cyst within the uncinate process measuring approximately 5.2 x 4.4 cm. There is no evidence for biliary duct dilatation. Spleen: There is homogeneous attenuation of the splenic parenchyma. There is no enhancing mass lesion. Pancreas: There has been interval development of a large heterogeneously enhancing cystic and solid mass within the body of the pancreas most characteristic of pancreatic cancer. It measures approximately 4.8 x 3.0 cm. Additional sharply defined cyst is now seen involving the tail the pancreas measuring 3.1 x 2.5 cm. No associated solid mass is present with this cyst. Gall Bladder: The gallbladder is well distended with no evidence for intraluminal calculi, wall thickening or pericholecystic edema. Adrenal glands: The adrenal glands are normal in size and attenuation. There is no evidence for enhancing mass lesion. Kidneys: There is homogeneous attenuation of the renal parenchyma bilaterally. There is no evidence for renal calculus or hydronephrosis. There is no evidence for enhancing mass. Incidental note is made of a simple left renal cyst. Bowel: There has been interval abdominal surgery for previous small bowel obstruction. The remaining bowel loops are otherwise normally placed within the abdomen and pelvis without evidence for dilatation or obstruction. This is no evidence for significant fecal stasis, fecal impaction or obstruction of the colon. There are no inflammatory changes present. There is no evidence for free air. Bladder: The bladder is within normal limits with no evidence for focal mass, calculus or diverticulum. : There is no evidence for pelvic mass or adenopathy. The patient is status post hysterectomy. Vasculature: There is no evidence for aneurysmal dilatation of the abdominal aorta. Atherosclerotic calcification is present. Osseous structures: There is no acute osseous pathology.
[2021-04-08] MEDS ORDERED: SODIUM CHLORIDE 0.9% 500 ML IV ONE (23:53)
[2021-04-09 00:19] LABS: Basophils # (auto) 0.02 K/uL (0-0.2); Basophils % (auto) 0.3 %; Eosinophils # (auto) 0.19 K/uL (0-0.5); Eosinophils % (auto) 2.5 %; Hematocrit (blood only) 35.3 % (37-47); Hemoglobin 11.3 g/dL (12.0-16.0); Immature Granulocytes # (auto) 0.01 K/uL (0.00-0.02); Immature Granulocytes % (auto) 0.1 %; Lymphocytes # (auto) 1.79 K/uL (1.2-3.4); Lymphocytes % (auto) 23.6 %; Mean Corpuscular Hemoglobin 29.5 pg (25-34); Mean Corpuscular Volume 92.2 fL (80-100); Mean Platelet Volume 9.5 fL (7.4-10.4); Monocytes # (auto) 1.15 K/uL (0.11-0.59); Monocytes % (auto) 15.2 %; Neutrophils # (auto) 4.41 K/uL (1.4-6.5); Neutrophils % (auto) 58.3 %; Platelet Count 279 K/uL (130-400); RDW Coefficient of Variation 13.6 % (11.5-14.5); RDW Standard Deviation 45.5 fL (36.4-46.3); Red Blood Count 3.83 M/uL (4.2-5.4); White Blood Count 7.57 K/uL (4.8-10.8)
[2021-04-09 00:36] LABS: BUN Creatinine Ratio 10.5 (10-20); Calcium 9.3 mg/dl (8.5-10.1); Creatinine Clr Calc Pharmacy 91.1 ml/min; Est GFR (African American) 114.6 ml/min; Est GFR (Non-African American) 98.9 ml/min; Magnesium 2.1 mg/dl (1.8-2.4); Potassium 3.9 mmol/L (3.5-5.1)
[2021-04-09] MEDS: SODIUM CHLORIDE 0.9% 1000ML 1,000 ML IV SCH ×2 (08:44→16:30)
[2021-04-09] MEDS: MULTIVITAMIN TAB PO SCH (08:46)
[2021-04-09] MEDS: POLYETHYLENE (MIRALAX) 17 GM PACK PO SCH (08:46)
[2021-04-09] MEDS: ENOXAPARIN INJ 40 MG/0.4 ML SYR SQ SCH (08:46)
--- NOTE | 2021-04-09 09:14 | Gastrointestinal Consultation ---
Date of Consultation April 09, 2021 Assessment & Plan (1) Pancreatic mass: 60 year old female admitted w/ general GI symptoms, nausea, decreased appetite, pain, belching, imaging with panc body mass w/ liver lesions NPO for EUS Thank you for allowing us to participate in the care of this patient. Please call with any acute changes, questions or concerns. Please see addendum below with additional recommendation from my supervising physician. Supervising Physician Co-Signing Physician Notes I performed a history and physical examination of the patient today, including specifically on physical exam - soft abdomen. I have discussed the patient's management with the advanced practitioner. Please refer to the nurse practitioner's note for the documented findings and plan of care. EUS today with FNA Patient was explained in detail regarding risks, benefits, limitations and alternatives of the above endoscopic procedure. Risks of intravenous sedation used for procedure were also explained. Risks include, but not limited to perforation, bleeding, infection, respiratory distress, cardiac arrest and . Patient is also aware about the possibility of missed lesion. Patient's questions were answered. The patient verbalized understanding the information and agreed to undergo the procedure. History of Present Illness Reason for Consultation: panc mass Requesting Physician: nicki Attending Physician: Shania Laws MD History of Present Illness 60 year old female with hypothyroidism, hx of small bowel obstruction, ruptured diverticulitis status post colostomy, reversal colostomy in 2009 and then had a hernia surgery, complication from her previous surgery. Then in 2017,she had laparoscopic lysis of adhesions and possible mesh placement admitted w/ general abd pain, nausea, decreased appetite. GI asked to evaluate for pancreatic mass. Pt notes that for the last few months she has had a lot of burping/belching, decreased appetite, fullness and general discomfort. This acutely worsened about 1-2 weeks ago associated with constipation CTAP 2020: . Interval development of a large heterogeneously enhancing pancreatic mass characteristic of pancreatic carcinoma. 2. Diffuse liver metastases. 3. Mild periaortic adenopathy is also present. 4. Mild abdominal and moderate pelvic ascites. 5. Small lower abdominal wall hernia with a loop of small bowel present. No evidence for obstruction or incarceration. 6. Additional nonacute findings as delineated above. Allergies Allergy/AdvReac Type Severity Reaction Status Date / Time No Known Allergies Allergy Verified 06/16/19 20:13 Home Medications Medication Instructions Recorded Confirmed Type multivitamin 1 tab PO DAILY 06/16/19 04/08/21 History sennosides 8.8 mg/5 mL oral syrup 5 ml PO BID PRN #236 ml 06/21/19 04/08/21 Rx (senna) Patient History Medical History Anemia Hypothyroidism Liver metastasis Pancreatic mass Rupture of bowel Secondary hyperparathyroidism Surgical History History of partial hysterectomy Family History Other No pertinent family history Social History Smoking Status: Current every day smoker Cigarettes Per Day: 10; Do You Dip or Chew Tobacco: No; Hx Alcohol Use: Yes Alcohol type: beer and wine Hx Substance Use: No Preferred Language: Lithuanian Communication Ability: Effective Assembler Knife Required: No Beliefs That Will Affect Care: None marital status: Current Living Situation: Spouse Other Information That Helps Us Care for You: No Feels Safe at Home: Yes Safety Concerns: Feels Safe At This Time Assistive Devices: Denture - Upper, Denture - Lower and Glasses Review of Systems Review of Systems: All systems reviewed & are unremarkable except as noted in HPI & below Physical Exam Constitutional: WD/WN, vitals as above Neck: trachea midline, no thyromegaly Respiratory: normal respiratory effort, lungs clear to auscultation Cardiovascular: Rate/Rhythm: regular rate and regular rhythm Gastrointestinal (Abdomen): normal bowel sounds, soft, nontender, no hepatosplenomegaly Skin: no rashes, warm and dry Results & Data ([facility]) Vital Signs (Past 12 Hours) Vital Signs Temp Pulse Resp BP Pulse Ox 04/09/21 06:19 36.4 C L 72 17 97/58 L 93 04/09/21 01:06 94/58 L 04/08/21 23:26 94/56 L 04/08/21 23:15 36.7 C 66 18 90/56 L 93 Laboratory Results 04/09/21 04/09/21 04/09/21 Range/Units 00:09 00:09 00:09 WBC 7.57 (4.8-10.8) K/uL RBC 3.83 L (4.2-5.4) M/uL Hgb 11.3 L (12.0-16.0) g/dL Hct 35.3 L (37-47) % MCV 92.2 (80-100) fL MCH 29.5 (25-34) pg MCHC 32.0 (32-36) g/dL RDW Std Deviation 45.5 (36.4-46.3) fL RDW Coeff of Trace 13.6 (11.5-14.5) % Plt Count 279 (130-400) K/uL MPV 9.5 (7.4-10.4) fL Immature Gran % (Auto) 0.1 % Neut % (Auto) 58.3 % Lymph % (Auto) 23.6 % [place] % (Auto) 15.2 % Eos % (Auto) 2.5 % Baso % (Auto) 0.3 % Neut # (Auto) 4.41 (1.4-6.5) K/uL Lymph # (Auto) 1.79 (1.2-3.4) K/uL [place] # (Auto) 1.15 H (0.11-0.59) K/uL Eos # (Auto) 0.19 (0-0.5) K/uL Baso # (Auto) 0.02 (0-0.2) K/uL Immature Gran # (Auto) 0.01 (0.00-0.02) K/uL Sodium 138 (136-145) mmol/L Potassium 3.9 (3.5-5.1) mmol/L Chloride 107 (98-107) mmol/L Carbon Dioxide 26 (21-32) mmol/L Anion Gap 5.0 (3-11) BUN 7 (7-18) mg/dl Creatinine 0.63 (0.6-1.2) mg/dl Est Cr Clr Drug Dosing 91.1 ml/min Est GFR ( Amer) 114.6 ml/min Est GFR (Non-Af Amer) 98.9 ml/min BUN/Creatinine Ratio 10.5 (10-20) Glucose 100 H (70-99) mg/dl Lactate 0.5 (0.4-2.0) mmol/L Calcium 9.3 (8.5-10.1) mg/dl Magnesium 2.1 (1.8-2.4) mg/dl Total Bilirubin (0.2-1) mg/dl AST (15-37) U/L ALT (12-78) U/L Alkaline Phosphatase (45-117) U/L Total Protein (6.4-8.2) gm/dl Albumin (3.4-5.0) gm/dl Globulin (2.5-4.0) gm/dl Albumin/Globulin Ratio (0.9-2) Lipase (73-393) U/L CA 19-9 Antigen Urine Color Urine Appearance (Clear) Urine pH (4.5-7.5) Ur Specific Iva (1.000-1.030) Urine Protein (Negative) Urine Glucose (UA) (Negative) Urine Ketones (Negative) Urine Blood (Negative) Urine Nitrite (Negative) Urine Bilirubin (Negative) Urine Urobilinogen (Negative) Ur Leukocyte Esterase (Negative) Urine WBC (Auto) (0-5) /hpf Urine RBC (Auto) (0-4) /hpf U Hyaline Cast (Auto) (0-5) /lpf U Epithel Cells (Auto) (0-5) /lpf Urine Bacteria (Auto) (Negative) COVID-19 Eval Order SARS-CoV-2 (PCR) (Negative) 04/08/21 04/08/21 04/08/21 Range/Units 11:52 10:32 10:32 WBC (4.8-10.8) K/uL RBC (4.2-5.4) M/uL Hgb (12.0-16.0) g/dL Hct (37-47) % MCV (80-100) fL MCH (25-34) pg MCHC (32-36) g/dL RDW Std Deviation (36.4-46.3) fL RDW Coeff of Trace (11.5-14.5) % Plt Count (130-400) K/uL MPV (7.4-10.4) fL Immature Gran % (Auto) % Neut % (Auto) % Lymph % (Auto) % [place] % (Auto) % Eos % (Auto) % Baso % (Auto) % Neut # (Auto) (1.4-6.5) K/uL Lymph # (Auto) (1.2-3.4) K/uL [place] # (Auto) (0.11-0.59) K/uL Eos # (Auto) (0-0.5) K/uL Baso # (Auto) (0-0.2) K/uL Immature Gran # (Auto) (0.00-0.02) K/uL Sodium (136-145) mmol/L Potassium (3.5-5.1) mmol/L Chloride (98-107) mmol/L Carbon Dioxide (21-32) mmol/L Anion Gap (3-11) BUN (7-18) mg/dl Creatinine (0.6-1.2) mg/dl Est Cr Clr Drug Dosing ml/min Est GFR ( Amer) ml/min Est GFR (Non-Af Amer) ml/min BUN/Creatinine Ratio (10-20) Glucose (70-99) mg/dl Lactate (0.4-2.0) mmol/L Calcium (8.5-10.1) mg/dl Magnesium (1.8-2.4) mg/dl Total Bilirubin (0.2-1) mg/dl AST (15-37) U/L ALT (12-78) U/L Alkaline Phosphatase (45-117) U/L Total Protein (6.4-8.2) gm/dl Albumin (3.4-5.0) gm/dl Globulin (2.5-4.0) gm/dl Albumin/Globulin Ratio (0.9-2) Lipase (73-393) U/L CA 19-9 Antigen Urine Color Yellow Urine Appearance Clear (Clear) Urine pH 6.5 (4.5-7.5) Ur Specific Iva 1.027 (1.000-1.030) Urine Protein Negative (Negative) Urine Glucose (UA) Negative (Negative) Urine Ketones Negative (Negative) Urine Blood Negative (Negative) Urine Nitrite Negative (Negative) Urine Bilirubin Negative (Negative) Urine Urobilinogen Negative (Negative) Ur Leukocyte Esterase Trace H (Negative) Urine WBC (Auto) 10-30 H (0-5) /hpf Urine RBC (Auto) 0-4 (0-4) /hpf U Hyaline Cast (Auto) 1-5 (0-5) /lpf U Epithel Cells (Auto) >30 H (0-5) /lpf Urine Bacteria (Auto) 1+ H (Negative) COVID-19 Eval Order Covid19 at [facility] SARS-CoV-2 (PCR) NEGATIVE (Negative) 04/08/21 04/08/21 04/08/21 Range/Units 10:05 10:05 10:05 WBC 8.43 (4.8-10.8) K/uL RBC 4.37 (4.2-5.4) M/uL Hgb 13.2 (12.0-16.0) g/dL Hct 38.9 (37-47) % MCV 89.0 (80-100) fL MCH 30.2 (25-34) pg MCHC 33.9 (32-36) g/dL RDW Std Deviation 44.3 (36.4-46.3) fL RDW Coeff of Trace 13.4 (11.5-14.5) % Plt Count 366 (130-400) K/uL MPV 10.4 (7.4-10.4) fL Immature Gran % (Auto) 0.1 % Neut % (Auto) 63.3 % Lymph % (Auto) 20.8 % [place] % (Auto) 13.3 % Eos % (Auto) 2.1 % Baso % (Auto) 0.4 % Neut # (Auto) 5.34 (1.4-6.5) K/uL Lymph # (Auto) 1.75 (1.2-3.4) K/uL [place] # (Auto) 1.12 H (0.11-0.59) K/uL Eos # (Auto) 0.18 (0-0.5) K/uL Baso # (Auto) 0.03 (0-0.2) K/uL Immature Gran # (Auto) 0.01 (0.00-0.02) K/uL Sodium 138 (136-145) mmol/L Potassium 3.7 (3.5-5.1) mmol/L Chloride 107 (98-107) mmol/L Carbon Dioxide 24 (21-32) mmol/L Anion Gap 7.0 (3-11) BUN 7 (7-18) mg/dl Creatinine 0.65 (0.6-1.2) mg/dl Est Cr Clr Drug Dosing 88.3 ml/min Est GFR ( Amer) 113.4 ml/min Est GFR (Non-Af Amer) 97.9 ml/min BUN/Creatinine Ratio 10.2 (10-20) Glucose 101 H (70-99) mg/dl Lactate (0.4-2.0) mmol/L Calcium 10.7 H (8.5-10.1) mg/dl Magnesium (1.8-2.4) mg/dl Total Bilirubin 0.5 (0.2-1) mg/dl AST 19 (15-37) U/L ALT 31 (12-78) U/L Alkaline Phosphatase 216 H (45-117) U/L Total Protein 7.5 (6.4-8.2) gm/dl Albumin 3.2 L (3.4-5.0) gm/dl Globulin 4.3 H (2.5-4.0) gm/dl Albumin/Globulin Ratio 0.8 L (0.9-2) Lipase 75 (73-393) U/L CA 19-9 Antigen Pending Urine Color Urine Appearance (Clear) Urine pH (4.5-7.5) Ur Specific Iva (1.000-1.030) Urine Protein (Negative) Urine Glucose (UA) (Negative) Urine Ketones (Negative) Urine Blood (Negative) Urine Nitrite (Negative) Urine Bilirubin (Negative) Urine Urobilinogen (Negative) Ur Leukocyte Esterase (Negative) Urine WBC (Auto) (0-5) /hpf Urine RBC (Auto) (0-4) /hpf U Hyaline Cast (Auto) (0-5) /lpf U Epithel Cells (Auto) (0-5) /lpf Urine Bacteria (Auto) (Negative) COVID-19 Eval Order SARS-CoV-2 (PCR) (Negative)
[2021-04-09] MEDS ORDERED: PROPOFOL IV EMULSION 10 MG/ML 20 ML VIAL IV ONE (12:28)
[2021-04-09] MEDS ORDERED: LIDOCAINE 2% 2 ML VIAL/AMP(20MG/ML) INFIL ONE (12:28)
[2021-04-09] MEDS ORDERED: SUCCINYLCHOLINE 100MG/5ML SYR IV ONE (12:28)
[2021-04-09] MEDS ORDERED: MIDAZOLAM HCL 1 MG/ML 2ML VIAL ONE (12:28)
[2021-04-09] MEDS ORDERED: fentaNYL citrate 100 MCG/2 ML VIAL ONE (12:28)
[2021-04-09] MEDS ORDERED: ONDANSETRON INJ 2 MG/ML 2 ML VIAL IV PRN (12:50)
[2021-04-09] MEDS ORDERED: PHENYLEPHRINE 100MCG/ML 5ML SYR IV PRN (12:50)
[2021-04-09] MEDS ORDERED: fentaNYL citrate 100 MCG/2 ML VIAL IV PRN (12:50)
[2021-04-09] MEDS ORDERED: MEPERIDINE HCL 25 MG/ML CARP/VIAL IV PRN (12:50)
[2021-04-09] MEDS ORDERED: HYDROmorphone INJ 1 MG/ML SYRINGE IV PRN (12:50)
[2021-04-09] MEDS ORDERED: ATROPINE SULFATE 0.1 MG/ML 10ML SYR IV PRN (12:50)
[2021-04-09] MEDS ORDERED: ePHEDrine sulfate 50 MG/ML AMP IV PRN (12:50)
[2021-04-09] MEDS ORDERED: LABETALOL HCL IV 5 MG/ML 20ML IV PRN (12:50)
--- NOTE | 2021-04-09 13:04 | Anesthesiology Consultation ---
Date of Service April 09, 2021 Assessment & Plan Chart Review Chart Review: Acceptable Risk for Surgery and Patient NOT seen in Pre Admission Testing Consults Requested none History Surgery Operation Date: 04/09/21 07:00 Proposed Procedures p Endoscopic Ultrasonography Upper - Hleen Gamez MD Height/Weight Height: 5 ft 6 in Weight: 69 kg Allergies Allergy/AdvReac Type Severity Reaction Status Date / Time No Known Allergies Allergy Verified 06/16/19 20:13 Medications Home Medications Medication Instructions Recorded Confirmed Last Taken multivitamin 1 tab PO DAILY 06/16/19 04/08/21 Unknown sennosides 8.8 mg/5 mL oral syrup 5 ml PO BID PRN #236 ml 06/21/19 04/08/21 Unknown (senna) Active Medications Generic Name Dose Route Start Last Admin Trade Name Freq PRN Reason Stop Dose Admin Acetaminophen 650 mg 04/08/21 14:59 04/08/21 23:23 Acetaminophen 325 Mg Tab PO 05/08/21 14:58 650 mg Q4H PRN Administration Moderate Pain Enoxaparin Sodium 40 mg 04/08/21 15:15 04/09/21 08:46 Enoxaparin Inj 40 Mg/0.4 Ml Syr SQ 05/08/21 15:14 Not Given QAM MAINE Sodium Chloride 1,000 mls @ 125 mls/hr 04/08/21 14:59 04/09/21 08:44 Nss 1000ml IV 05/08/21 14:58 125 mls/hr .Q8H MAINE Administration Multivitamins 1 tab 04/09/21 09:00 04/09/21 08:46 Multivitamin Tab PO 05/09/21 08:59 Not Given QAM MAINE Polyethylene Glycol 17 gm 04/08/21 14:59 04/09/21 08:46 Polyethylene (Miralax) 17 Gm Pack PO 05/08/21 14:58 Not Given DAILY MAINE NPO Date Last Intake of Fluids: 04/08/21 Time Last Intake of Fluids: 21:00 Date Last Intake of Solids: 04/08/21 Time Last Intake of Solids: 21:00 Past Medical History Medical History Anemia Hypothyroidism Liver metastasis Pancreatic mass Rupture of bowel Secondary hyperparathyroidism Past Family History Family History Other No pertinent family history Past Surgical History Surgical History History of partial hysterectomy Social History Smoking Status: Current every day smoker tobacco type: cigarettes Smoking cigarettes per day: 10 Do You Dip or Chew Tobacco: No Hx Alcohol Use: Yes Alcohol type: beer and wine alcohol intake frequency: holidays/special occasions only Hx Substance Use: No Physical Exam Vital Signs Last Vital Signs Temp 36.6 C 04/09/21 12:02 Pulse 72 04/09/21 12:02 Resp 18 04/09/21 12:02 BP 116/53 L 04/09/21 12:02 Pulse Ox 93 04/09/21 12:02 Testing Laboratory Results 04/09/21 00:09 04/09/21 00:09 Urine Color Yellow 04/08/21 11:52 Urine Appearance Clear (Clear) 04/08/21 11:52 Urine pH 6.5 (4.5-7.5) 04/08/21 11:52 Ur Specific [place] 1.027 (1.000-1.030) 04/08/21 11:52 Urine Protein Negative (Negative) 04/08/21 11:52 Urine Glucose (UA) Negative (Negative) 04/08/21 11:52 Urine Ketones Negative (Negative) 04/08/21 11:52 Urine Nitrite Negative (Negative) 04/08/21 11:52 Ur Leukocyte Esterase Trace (Negative) H 04/08/21 11:52 Urine WBC (Auto) 10-30 /hpf (0-5) H 04/08/21 11:52 Urine RBC (Auto) 0-4 /hpf (0-4) 04/08/21 11:52 U Hyaline Cast (Auto) 1-5 /lpf (0-5) 04/08/21 11:52 U Epithel Cells (Auto) >30 /lpf (0-5) H 04/08/21 11:52 Urine Bacteria (Auto) 1+ (Negative) H 04/08/21 11:52 Electrocardiogram Date: 05/09/21 Findings: + NSR @ (18)
--- NOTE | 2021-04-09 13:13 | History & Physical Bridge Note ---
Date of Service April 09, 2021 History & Physical Bridge Note I have examined the patient, reviewed the History & Physical and in the interval since the performance of the History & Physical I have noted the following changes of clinical significance: no changes noted
--- NOTE | 2021-04-09 13:39 | Communication Note ---
Date of Service: April 09, 2021 Patient was out of room for EUS at time of rounding. No surgical intervention required at this time. Recommend bowel regimen for obstipation once EUS c ompleted and okay with GI service. There is no evidence of obstruction at site of ventral hernia.
[2021-04-09] MEDS ORDERED: CIPROFLOXACIN 400MG / 200ML D5W IV ONE (13:43)
--- NOTE | 2021-04-09 13:58 | Operative Report ---
Post Operative Report Pre & Post Diagnosis Operation Date: 04/09/21 07:00 Pre-Op Diagnosis: NEW PANCREATITC MASS, LIVER METS Post-Op Diagnosis: NEW PANCREATITC MASS, LIVER METS I identified the patient and participated in the time-out.: Yes Procedure Operation Date: 04/09/21 07:00 Actual Procedures p Endoscopic Ultrasonography Upper - Helen Gamez MD Surgeon Helen Gamez MD Photo Print Specialist None Estimated Blood Loss 0 Findings See Below (Pancreas mass with Liver Metastasis, FNA from a liver mass done) Specimens FNA liver mass Description of Procedure EUS I attest to the content of the Intraoperative Record and any orders documented therein. Any exceptions are noted below.
--- NOTE | 2021-04-09 14:15 | GI REPORT ---
Patient Name: Destiny Seo Procedure Date: 04/09/2021 1:03 PM Date of : 1960 Admit Type: Inpatient Age: 60 Gender: Female Attending MD: Helen Gamez MD Procedure: Upper GI endoscopy Providers: Helen Gamez MD Referring MD: Shania Laws Md Indications: Abnormal CT of the GI tract Medicines: Propofol per Anesthesia Complications: No immediate complications. Estimated Blood Loss: Estimated blood loss: none. Procedure: Pre-Anesthesia Assessment: - Prior to the procedure, a History and Physical was performed, and patient medications, allergies and sensitivities were reviewed. The patient's tolerance of previous anesthesia was reviewed. - The risks and benefits of the procedure and the sedation options and risks were discussed with the patient. All questions were answered and informed consent was obtained. - Patient identification and proposed procedure were verified prior to the procedure by the physician and the nurse. The procedure was verified in the procedure room. - Pre-procedure physical examination revealed no contraindications to sedation. After obtaining informed consent, the endoscope was passed under direct vision. Throughout the procedure, the patient's blood pressure, pulse, and oxygen saturations were monitored continuously. The Endoscope was introduced through the mouth, and advanced to the second part of duodenum. The upper GI endoscopy was accomplished without difficulty. The patient tolerated the procedure well. Findings: The examined esophagus was normal. The entire examined stomach was normal. The duodenal bulb and second portion of the duodenum were normal. Impression: - Normal esophagus. - Normal stomach. - Normal duodenal bulb and second portion of the duodenum. Recommendation: - Perform an upper endoscopic ultrasound (UEUS) today. Helen Gamez MD 04/09/2021 2:15:07 PM This report has been signed electronically. Note Initiated On: 04/09/2021 1:03 PM Number of Addenda: 0 I attest to the content of the Intraoperative Record and orders documented therein, exceptions below {[id number]}
--- NOTE | 2021-04-09 14:25 | GI REPORT ---
Patient Name: Destiny Seo Procedure Date: 04/09/2021 1:13 PM Date of : 1960 Admit Type: Inpatient Age: 60 Gender: Female Attending MD: Helen Gamez MD Procedure: Upper EUS Providers: Helen Gamez MD Referring MD: Shania Laws Md Indications: Suspected mass in liver on CT scan, Suspected mass in pancreas on CT scan Medicines: General Anesthesia, Cipro 400 mg IV Complications: No immediate complications. Estimated Blood Loss: Estimated blood loss: none. Procedure: Pre-Anesthesia Assessment: - Prior to the procedure, a History and Physical was performed, and patient medications, allergies and sensitivities were reviewed. The patient's tolerance of previous anesthesia was reviewed. - The risks and benefits of the procedure and the sedation options and risks were discussed with the patient. All questions were answered and informed consent was obtained. - Patient identification and proposed procedure were verified prior to the procedure by the physician and the nurse. The procedure was verified in the procedure room. - Pre-procedure physical examination revealed no contraindications to sedation. After obtaining informed consent, the endoscope was passed under direct vision. Throughout the procedure, the patient's blood pressure, pulse, and oxygen saturations were monitored continuously. The Endosonoscope was introduced through the mouth, and advanced to the second part of duodenum. The upper EUS was accomplished without difficulty. The patient tolerated the procedure well. Findings: ENDOSONOGRAPHIC FINDING: : There was no sign of significant endosonographic abnormality in the ampulla. No masses were identified. There was no sign of significant endosonographic abnormality in the common bile duct. The maximum diameter of the duct was 4 mm. No stones and no biliary sludge were identified. There was no sign of significant endosonographic abnormality in the gallbladder. No stones were identified. A round mass was identified in the pancreatic body. The mass was hypoechoic. The mass measured 50 mm by 28 mm in maximal cross-sectional diameter. The endosonographic borders were well-defined. There was sonographic evidence suggesting invasion into the portal vein (manifested by abutment). An intact interface was seen between the mass and the celiac trunk suggesting a lack of invasion. The remainder of the pancreas was examined. The endosonographic appearance of parenchyma and the upstream pancreatic duct indicated duct dilation, a maximum duct diameter of 5 mm and parenchymal atrophy. This was staged T3 N2 M1 (based on metastasis to liver and pending cytologic confirmation). The staging applies if malignancy is confirmed. Anechoic lesions suggestive of two cysts were identified in the pancreatic tail. The largest lesion measured 22 mm in maximal cross-sectional diameter. There was no associated mass. Multiple round lesions were identified endosonographically in the left lobe of the liver and in the right lobe of the liver. The endosonographic appearance was suggestive of metastases. The lesions were hypoechoic. The largest lesion measured 50 mm in maximal cross-sectional diameter. The endosonographic borders were well-defined. Fine needle biopsy was performed. Color Doppler imaging was utilized prior to needle puncture to confirm a lack of significant vascular structures within the needle path. Four passes were made with the 25 gauge CosNet EchoTip biopsy needle using a transgastric approach. The cellularity of the specimen was adequate. Final cytology results are pending. Verification of patient identification for the specimen was done by the physician and nurse using the patient's name and date. Many malignant-appearing lymph nodes were visualized in the gastrohepatic ligament (level 18), celiac region (level 20) and peripancreatic region. The nodes were round and had well defined margins. A small amount of fluid, visualized as an anechoic feature, was found in the peritoneal cavity. Impression: - A malignant appearing 5 cm mass was identified in the pancreatic body. - Multiple metastatic lesions were found in the liver. Fine needle biopsy performed. - Many malignant-appearing lymph nodes were visualized in the gastrohepatic ligament (level 18), celiac region (level 20) and peripancreatic region. Recommendation: - [facility] for [facility] care. - Await path results. - Advance diet as tolerated. - Refer to an oncologist. Helen Gamez MD 04/09/2021 2:24:44 PM This report has been signed electronically. Note Initiated On: 04/09/2021 1:13 PM Number of Addenda: 0 I attest to the content of the Intraoperative Record and orders documented therein, exceptions below {[id number]}
--- NOTE | 2021-04-09 14:31 | Anesthesiology Progress Note ---
Date of Service April 09, 2021 Anesthesia Post Procedure Vital Signs Vital Signs: Temp Pulse Pulse Resp BP BP Pulse Ox 04/09/21 14:25 79 15 110/52 L 98 04/09/21 14:15 58 L 24 103/48 L 99 04/09/21 14:05 36.2 C L 70 16 103/62 95 04/09/21 12:02 36.6 C 72 18 116/53 L 93 04/09/21 06:19 36.4 C L 72 17 97/58 L 93 04/09/21 01:06 94/58 L 04/08/21 23:26 94/56 L 04/08/21 23:15 36.7 C 66 18 90/56 L 93 04/08/21 15:03 36.8 C 75 16 100/64 94 Pain Intensity Right Medial Abdomen: Pain Intensity: 2 Right Abdomen: Pain Intensity: 2 Transfer of Care Handoff Completed per policy Notes Mental Status: alert / awake / arousable Patient Amnestic to Procedure: Yes Nausea / Vomiting: adequately controlled Pain: adequately controlled Airway Patency, RR, SpO2: stable & adequate BP & HR: stable & adequate Hydration State: stable & adequate Anesthetic Complications: no major complications apparent and Pt Satisfied with anesthetic care
--- NOTE | 2021-04-09 14:33 | Palliative Care Consultation ---
Date of Consultation April 09, 2021 Assessment & Plan (1) Abdominal pain: with what appears to be metastatic pancreatic cancer. Continue prn morphine and monitor with constipation and history of SBO Abdominal location: unspecified location Qualified Code(s): R10.9 - Unspecified abdominal pain (2) Palliative care encounter: I talked at length with Destiny about how she is coping with recent diagnosis. She is tearful and is still trying to absorb the information. She asked about the staging of her disease and we discussed that with apparent liver metastases, she would be Stage IV. She tells me that she has very strong shaw and she believes that God will help her and "everything will be ok". I asked her what that meant to her. She tells me that she knows that she is going to . She is most worried about how her children and will handle this. She has not really discussed this with them and asked that I not talk to them at this time. She has good support from friends and spiritual support though she does not belong to a mandaeism or have her own open die inspector. She has not really considered what she would want to do about her cancer but does understand that at this time, treatment would be more palliative than curative. She is agreeable to ongoing f/u with palliative care to help with support, symptom management and goals of care. Palliative care will follow. (3) Pancreatic mass: (4) Liver metastasis: (5) Obstipation: History of Present Illness Reason for Consultation: goals of care Requesting Physician: SANDIE Rodgers Attending Physician: Shania Laws MD History of Present Illness 60 yo lady with multiple prior abdominal surgeries, including colostomy for ruptured diverticulm and subsequent reversal, hernia repair and lysis of adhesions. She also has h/o SBO. She has had ongoing problems with abdominal pain which became severe and now radiates to her back and eipgastrium. She has had a ten lb weight loss over the last year with anorexia and nausea. On admission, CT revealed 4.8 x 3 cm pancreatic mass with liver lesions and lymphadenopathy. She is also being treated for a UTI. She is scheduled for UGI and UEUS today. She is resting in bed and complains of abdominal distension and discomfort. She has not used prn morphine but is aware that it is available for relief of her pain if needed. She is tearful and tells me that it is just now hitting her that she has cancer. We have been consulted to assist with goals of care. Allergies Allergy/AdvReac Type Severity Reaction Status Date / Time No Known Allergies Allergy Verified 06/16/19 20:13 Home Medications Medication Instructions Recorded Confirmed Type multivitamin 1 tab PO DAILY 06/16/19 04/08/21 History sennosides 8.8 mg/5 mL oral syrup 5 ml PO BID PRN #236 ml 06/21/19 04/08/21 Rx (senna) Patient History Medical History Anemia Hypothyroidism Liver metastasis Pancreatic mass Rupture of bowel Secondary hyperparathyroidism Surgical History History of partial hysterectomy Family History Other No pertinent family history Social History Smoking Status: Current every day smoker Cigarettes Per Day: 10; Do You Dip or Chew Tobacco: No; Hx Alcohol Use: Yes Alcohol type: beer and wine Hx Substance Use: No Preferred Language: Thai Communication Ability: Effective 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 Beliefs That Will Affect Care: None marital status: Current Living Situation: Spouse Other Information That Helps Us Care for You: No Feels Safe at Home: Yes Safety Concerns: Feels Safe At This Time Assistive Devices: Denture - Upper, Denture - Lower and Glasses Review of Systems Review of Systems: [place] Symptom Assessment Scale Pain 1/3 Dyspnea 0/3 Anxiety 2/3 Fatigue 1/3 Nausea 0/3 Anorexia 2/3 Palliative Performance Score 60% Physical Exam Constitutional: no acute distress Respiratory: normal respiratory effort; no labored breathing Cardiovascular: Extremities: no edema Gastrointestinal (Abdomen): midline surgical scar, mild distension, nontender to palpation Musculoskeletal: Extremities: extremities normal to inspection Neurologic: Speech / Cognition: normal cognition Psychiatric: Affect: + anxious affect Mood: + anxious mood Results & Data ([facility]) Vital Signs (Past 12 Hours) Vital Signs Temp Pulse Pulse Resp BP Pulse Ox 04/09/21 14:25 79 15 110/52 L 98 04/09/21 14:15 58 L 24 103/48 L 99 04/09/21 14:05 97.2 F L 70 16 103/62 95 04/09/21 12:02 97.9 F 72 18 116/53 L 93 04/09/21 06:19 97.5 F L 72 17 97/58 L 93 PG Care Time/CCT Total # of Minutes Spent Total Time Spent: 70 Total Time Spent with Patient: Total time spent is greater than 50% in coordination of care (as documented) at patient's floor/unit and/or counseling patient: goals of care, patient education and support Coding Level of Care Code 15100 Initial Inpt Care Lvl 3 Diagnoses Abdominal pain R10.9 Abdominal location: unspecified location Palliative care encounter Z51.5 Pancreatic mass K86.89 Liver metastasis C78.7 Obstipation K59.00
--- NOTE | 2021-04-09 17:43 | Hospitalist Progress Note ---
Date of Service April 09, 2021 Assessment & Plan (1) Pancreatic mass: (2) Liver metastasis: Plan: 60 yo F with PMhx of hypothyroidism, small bowel obstruction, ruptured diverticulitis status post colostomy, reversal colostomy in 2009 and then had a hernia surgery, complication from her previous surgery. Then in 2016,she had laparoscopic lysis of adhesions and possible mesh placement at [place]. She was previously hospitalized in Jun 2019 for small bowel obstruction. She presented 04/08 with complaint of increasing belly pain associated with constipation since last 5 days. Patient reports not passing gas since last 1 to 2 days. Patient reported nausea but no vomiting. Her appetite has decreased recently. In the ED she was found to have abnormal pancreatic mass, GI consulted, she is being managed for the following: #. Abdominal pain: #. Pancreatic mass: - Admitted to med surg - Consult oncology- Dr. Whitten aware - add on CA 19-9 - Admitting CTAP pancreatic mass large heterogeneously enhancing cystic and solid mass within the body of the pancreas most characteristic of pancreatic cancer. It measures approximately 4.8 x 3.0 cm. Additional sharply defined cyst is now seen involving the tail the pancreas measuring 3.1 x 2.5 cm. Previous imaging does not show any indication of pancreas or mass/abnormality. -GI consulted: EUS and biopsy of liver mass 04/09. 04/09 upper endoscope: Malignant appearing 5 cm mass in the pancreatic body, multiple metastatic lesions in the liver off with FNA biopsy performed, many malignant appearing lymph nodes in the gastrohepatic ligament/celiac region/peripancreatic region. - Pain control, advance diet as tolerated, stop IV fluid - Palliative care on board for goals of care discussion during hospital stay - pt is a DNR/DNI -Patient reporting improvement in her belly pain, patient is tolerating diet, bowel regimen has been increased -Possible discharge once patient moves bowel and if GI is okay with discharge. -Await pathology report, patient will need to follow-up with oncology as an out patient. #. Liver metastasis: - As noted on imaging. As above #. 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 #. 1* hyperparathyroidism: - Secondary to above, calcium level high normal, parathyroid level high normal. #. DVT ppx: - teds, scds, will hold Lovenox because of liver biopsy today. CODE: DNR/DNI Dispo: From home, likely to remain in the hospital x 1-2 days Admission and Anticipated Discharge Date Admission Date: April 08, 2021 Subjective Patient was sitting up in chair, on room air, appears sad due to recent developments in her health, no new acute events overnight. Patient is moving occasional gases but has not moved bowel. Belly pain has improved per patient. Patient denies headache/chills/chest pain/palpitation/other review of symptoms. Plan for upper scope with biopsy of the mass today, then will advance her diet and put her back on bowel regimen after surgery evaluation. Physical Exam Physical Exam: GENERAL: Alert and oriented x3. NAD, on RA. HEENT: No pallor, no icterus. Pupils equal, round and reactive to light. Oral mucosa moist. NECK: No JVD, no neck masses. HEART: S1 and S2 heard. Regular rate and rhythm. No murmur, no gallop. RESPIRATORY SYSTEM: Normal AP diameter. No accessory muscle use. No wheezing, no crackles. ABDOMEN: Soft, bowel sounds decreased, upper belly discomfort on deep palpat ion, no distention. CENTRAL NERVOUS SYSTEM: Alert and oriented x3. No facial droop. Speech is clear. Obeys simple commands. Moves extremities. EXTREMITIES: No edema, no erythema seen. Results & Data Results & Data ([facility]) Vital Signs (Past 12 Hours) Vital Signs Temp Pulse Pulse Resp BP Pulse Ox 04/09/21 16:19 36.4 C L 75 16 101/67 95 04/09/21 15:53 36.4 C L 73 16 108/52 L 93 04/09/21 15:11 36.7 C 72 16 107/58 L 97 04/09/21 14:55 77 16 110/56 L 95 04/09/21 14:45 63 16 107/50 L 93 04/09/21 14:35 36.8 C 75 16 107/45 L 95 04/09/21 14:25 79 15 110/52 L 98 04/09/21 14:15 58 L 24 103/48 L 99 04/09/21 14:05 36.2 C L 70 16 103/62 95 04/09/21 12:02 36.6 C 72 18 116/53 L 93 04/09/21 06:19 36.4 C L 72 17 97/58 L 93
[2021-04-10 06:32] LABS: Hematocrit (blood only) 36.1 % (37-47); Hemoglobin 11.6 g/dL (12.0-16.0); Mean Corpuscular Hemoglobin 29.4 pg (25-34); Mean Corpuscular Hgb Conc 32.1 g/dL (32-36); Mean Corpuscular Volume 91.4 fL (80-100); Mean Platelet Volume 10.1 fL (7.4-10.4); Platelet Count 310 K/uL (130-400); RDW Coefficient of Variation 13.4 % (11.5-14.5); Red Blood Count 3.95 M/uL (4.2-5.4); White Blood Count 7.96 K/uL (4.8-10.8)
--- NOTE | 2021-04-10 06:53 | Electrocardiogram Report ---
Test Reason : Blood Pressure : / mmHG Vent. Rate : 068 BPM Atrial Rate : 068 BPM P-R Int : 164 ms QRS Dur : 088 ms QT Int : 414 ms P-R-T Axes : 077 066 066 degrees QTc Int : 440 ms Normal sinus rhythm Normal ECG No previous ECGs available Confirmed by Mando Miles ([id number]) on 04/10/2021 6:53:05 AM Referred By: REFERRED SELF Confirmed By:Mando Miles
[2021-04-10 07:05] LABS: Albumin Level 2.5 gm/dl (3.4-5.0); BUN Creatinine Ratio 4.6 (10-20); Calcium 9.8 mg/dl (8.5-10.1); Creatinine Clr Calc Pharmacy 100.7 ml/min; Est GFR (African American) 118.4 ml/min; Est GFR (Non-African American) 102.2 ml/min; Magnesium 2.2 mg/dl (1.8-2.4)
[2021-04-10 07:24] LABS: Albumin Globulin Ratio 0.7 (0.9-2); Bilirubin,Total 0.4 mg/dl (0.2-1); Globulin 3.6 gm/dl (2.5-4.0); Phosphorus 2.8 mg/dl (2.5-4.9); Total Protein 6.1 gm/dl (6.4-8.2)
[2021-04-10] MEDS: MULTIVITAMIN TAB PO SCH (09:56)
[2021-04-10] MEDS: POLYETHYLENE (MIRALAX) 17 GM PACK PO SCH (09:57)
[2021-04-10] MEDS ORDERED: LACTULOSE SYRUP 20 GM/30 ML UDC PO PRN (10:08)
--- NOTE | 2021-04-10 14:27 | Discharge Summary ---
Date of Service April 10, 2021 Admission HPI Per Admitting Provider This is a 60 yo F with PMhx of hypothyroidism, hx of small bowel obstruction, ruptured diverticulitis status post colostomy, reversal colostomy in 2009 and then had a hernia surgery, complication from her previous surgery. Then in 2016,she had laparoscopic lysis of adhesions and possible mesh placement at [place]. She was previously hospitalized in Jun 2019 for small bowel obstruction. Today she presents with new onset of 1 week of abdominal pain, poor appetite, nausea, generalized malaise. She had initially thought that her pain was due to taking levothyroxine, so stopped this medication last week when the pain started as a chronic dull pain. Yesterday morning after the patient had eaten dinner she felt a crippling abdominal pain which brought her to her knees, in the position on the ground. Fluids and food continue to make her pain in her abdomen worse despite trying small amounts in past 24 hours. She admits to a weight loss of 10 pounds within the past year. Denies any night sweats or swollen lymph nodes. Today she continued to not feel well pain is now radiating to her back, under her rib cage. IV morphine in the ER helped alleviate pain. Her work-up in the ER included with elevated alk phos of 216 among other fairly normal labs and CT of the abdomen and pelvis reveals new pancreatic mass within the body of the pancreas most characteristic of pancreatic cancer. It measures approximately 4.8 x 3.0 cm. Additional sharply defined cyst is now seen involving the tail the pancreas measuring 3.1 x 2.5 cm. Her urinalysis is suggestive of a urinary tract infection, however the pt does not endorse symptoms currently. Pt reports that she is interested in treatment and seeing an oncologist. Reports family hx of cancers, mother dying of colon cancer, paternal grandfather with prostate cancer. Her also within the past 2 years per daughter who is tearful through the entire visit. 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 Denies smoking or drinking history. Admission Exam Per Admitting Provider GENERAL: Alert and oriented x3. NAD, on RA. HEENT: No pallor, no icterus. Pupils equal, round and reactive to light. Oral mucosa moist. NECK: No JVD, no neck masses. HEART: S1 and S2 heard. Regular rate and rhythm. No murmur, no gallop. RESPIRATORY SYSTEM: Normal AP diameter. No accessory muscle use. No wheezing, no crackles. ABDOMEN: Soft, bowel sounds decreased, lower belly tenderness on deep palpation, no distention. CENTRAL NERVOUS SYSTEM: Alert and oriented x3. No facial droop. Speech is clear. Obeys simple commands. Moves extremities. EXTREMITIES: No edema, no erythema seen. Principal Diagnosis Abdominal pain Pancreatic mass Constipation Discharge Exam GENERAL: Alert and oriented x3. NAD, on RA. HEENT: No pallor, no icterus. Pupils equal, round and reactive to light. Oral mucosa moist. NECK: No JVD, no neck masses. HEART: S1 and S2 heard. Regular rate and rhythm. No murmur, no gallop. RESPIRATORY SYSTEM: Normal AP diameter. No accessory muscle use. No wheezing, no crackles. ABDOMEN: Soft, bowel sounds decreased, nontender, no distention. CENTRAL NERVOUS SYSTEM: Alert and oriented x3. No facial droop. Speech is clear. Obeys simple commands. Moves extremities. EXTREMITIES: No edema, no erythema seen. Discharge Data Allergies Allergy/AdvReac Type Severity Reaction Status Date / Time No Known Allergies Allergy Verified 06/16/19 20:13 Consultations 04/08/21 12:17 ED Decision to Admit Stat 04/08/21 12:40 Consult Oncology Routine 04/08/21 14:17 Consult Palliative Care Routine 04/08/21 15:11 Consult Gastroenterology Routine 04/08/21 19:43 Consult General Surgery Routine Procedures Performed Operation Date: 04/09/21 07:00 Actual Procedures p Endoscopic Ultrasonography Upper - Helen Gamez MD Ordered Studies 04/08/21 10:19 CT abd pelvis IV con only Stat 04/09/21 12:52 US upper EUS PACS images Routine Hospital Course (1) Pancreatic mass: (2) Liver metastasis: 60 yo F with PMhx of hypothyroidism, small bowel obstruction, ruptured diverticulitis status post colostomy, reversal colostomy in 2009 and then had a hernia surgery, complication from her previous surgery. Then in 2016,she had laparoscopic lysis of adhesions and possible mesh placement at [place]. She was previously hospitalized in Jun 2019 for small bowel obstruction. She presented 04/08 with complaint of increasing belly pain associated with constipation since last 5 days. Patient reports not passing gas since last 1 to 2 days. Patient reported nausea but no vomiting. Her appetite has decreased recently. In the ED she was found to have abnormal pancreatic mass, GI consulted, she is being managed for the following: #. Abdominal pain: #. Pancreatic mass: - Admitted to med surg - Consulted oncology- Dr. Whitten aware - add on CA 19-9 - Admitting CTAP pancreatic mass large heterogeneously enhancing cystic and solid mass within the body of the pancreas most characteristic of pancreatic cancer. It measures approximately 4.8 x 3.0 cm. Additional sharply defined cyst is now seen involving the tail the pancreas measuring 3.1 x 2.5 cm. Previous imaging does not show any indication of pancreas or mass/abnormality. -GI consulted: EUS and biopsy of liver mass 04/09. 04/09 upper endoscope: Malignant appearing 5 cm mass in the pancreatic body, multiple metastatic lesions in the liver with FNA biopsy performed, many malignant appearing lymph nodes in the gastrohepatic ligament/celiac region/peripancreatic region. -Patient slowly advancing diet, tolerated well. Patient moved bowel. Advised to increase fiber in diet. - Palliative care on board for goals of care discussion during hospital stay - pt is a DNR/DNI -Patient reporting improvement in her belly pain, patient is tolerating diet, bowel regimen has been increased -Await pathology report, patient will need to follow-up with oncology as an out patient. -Patient to follow-up with primary care physician for final results on her pathology report of her liver. #. Liver metastasis: - As noted on imaging. As above #. 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 #. 1* hyperparathyroidism: - Secondary to above, calcium level high normal, parathyroid level high normal. #. DVT ppx: - teds, scds, will hold Lovenox because of liver biopsy today. CODE: DNR/DNI Patient discharged to home with following instruction at the time of discharge: Follow-up with your primary care physician within 1 week time Establish and follow-up with oncology doctor as an outpatient in 1 to 2 weeks time Your liver biopsy pathology reports are pending, follow-up with your primary care for final results on them. Encourage high-fiber diet for your constipation. Continue with your home thyroid medications. Take medications as prescribed Total Time Total Time Spent Total Time Spent (In Minutes): 40 Discharge Plan Discharge Items Patient Disposition: Home - Self-Care Reason For Visit: NEW PANCREATITC MASS, LIVER METS Discharge Diagnosis: Abdominal pain Pancreatic mass Constipation Condition on Discharge: Good Activity: Resume your previous activity Non-emergency contact: Primary Care Provider Call non-emergency contact if: you have any medication questions and your symptoms worsen Follow-up/Referrals: Sherri Van PA-C [Primary Care Provider] - Dietitian Info: High-fiber regular diet Diet: Regular Addtl Attending Provider Instructions: Follow-up with your primary care physician within 1 week time Establish and follow-up with oncology doctor as an outpatient in 1 to 2 weeks time Your liver biopsy pathology reports are pending, follow-up with your primary care for final results on them. Encourage high-fiber diet for your constipation. Continue with your home thyroid medications. Take medications as prescribed Pending Studies at Discharge: Yes (Liver biopsy results.) Stand-Alone Forms: [facility] [place] [employer], Smoking Cessation Medications and DC Order Prescriptions: New polyethylene glycol 3350 [Miralax] 17 gram Powder In Packet 17 g PO DAILY 30 Days Qty: 30 RF: 0 Continued multivitamin Tablet 1 tab PO DAILY RF: 0 sennosides [senna] 8.8 mg/5 mL Syrup 5 ml PO BID PRN (Reason: constipation) Qty: 236 RF: 0 Discharge Orders: Discharge Order (Routine); Ordered 04/10/21 Ordered By: Shania Laws Admission Data Admit Date/Time: 04/08/21 12:40 Attending Provider: Shania Laws Admit Provider: Shania Laws Primary Care Provider: Sherri Van Other Providers: Shania Laws ; Bob Whitten ; Mary Cade ; Helen Gamez ; Mauro Vicente
== END 2021-04-10 16:06 | disposition home or self-care (01) ==
LOC: ED 09:52 → 3E 12:40 → INTOOBSV 12:40 → 3E 14:55